=== PATIENT | male | born 1985 | race Caucasian/White ===

== ENCOUNTER 2022-09-29 14:59 | Emergency (ER) | payer OTHER, SELFPAY ==
[2022-09-29 14:59] VITALS: BP 129/83; PULSE 83; RESP 20; O2SAT 94
--- NOTE | 2022-09-29 15:08 | ED.WEAKNESS ---
HPI - Weakness General Chief complaint: Weakness Stated complaint: dehydration Time Seen by Provider: 09/29/22 15:07 Source: patient Mode of arrival: ambulatory Limitations: no limitations History of Present Illness HPI Narrative: -- severe headache which started this morning. No focal deficits. No fever. -- Nausea with multiple episodes of vomiting since this morning. No abdominal pain. No diarrhea. -- Generalized weakness The patient takes 40 units of Lantus at night 20 units with each meal. The patient has been compliant with his Lantus. Complaint: generalized weakness Onset (ago): hour(s) ( symptoms started 12 hours ago.) Duration: constant Location: generalized Migration: none Severity: moderate Exacerbating factors: none Associated symptoms: headaches and nausea/vomiting Related Data Allergies Allergy/AdvReac Type Severity Reaction Status Date / Time No Known Allergies Allergy Verified 09/29/22 15:52 Review of Systems Review of Systems: All systems reviewed & are unremarkable except as noted in HPI and below Constitutional: Constitutional: Reports as per HPI and Reports no additional constitutional complaints Eyes: Eyes: Reports as per HPI and Reports no additional eye complaints ENT: Reports system reviewed and no additional complaints, except as documented and Reports as per HPI Cardiovascular: Cardiovascular: Reports as per HPI and Reports no additional cardiovascular complaints Respiratory: Respiratory: Reports as per HPI and Reports no additional respiratory complaints Gastrointestinal: Gastrointestinal: Reports as per HPI, Reports no additional gastrointestinal complaints, Reports nausea and Reports vomiting Comments: Vomitus is bilious Genitourinary: Genitourinary: Reports no additional male genitourinary complaints and Reports as per HPI Musculoskeletal: Musculoskeletal: Reports no additional musculoskeletal complaints and Reports muscle cramps Integumentary/Breasts: Skin/Breast: Reports system reviewed and no additional complaints, except as docu and Reports as per HPI Neurologic: Reports system reviewed and no additional complaints, except as documented and Reports as per HPI Psychiatric: Psychiatric: Reports no additional psychiatric complaints and Reports as per HPI Endocrine: Endocrine: Reports no additional endocrine complaints and Reports as per HPI Hematologic/Lymphatic: Hematologic/Lymphatic: Reports no additional hematologic/lymphatic complaints and Reports as per HPI Allergic/Immunologic: Allergic/Immunologic: Reports no additional allergic/immunologic complaints and Reports as per HPI PMFSH Past Medical History Medical History (Updated 09/29/22 @ 19:54 by Chato Cano MD) Diabetes mellitus Exam Const: Nutritional Appearance: well nourished Orientation/consciousness: patient oriented x3 Limitations: no limitations HENMT: Head: normal to inspection Ears: external ears normal Face/Nose/Sinus: Normal external nose present Face and sinus: normal facial exam Mouth: Yes Normal oral and palatal mucosa present Throat: posterior oropharynx normal Eyes: Conjunctivae: conjunctivae normal Pupils: Equal, round and reactive pupils present EOM: EOMs intact bilaterally Direct Ophthalmoscopy: no photophobia Neck: Neck: normal visual inspection and no lymphadenopathy Chest: Chest palpation & inspection: normal inspection of the chest Resp: Effort & Inspection: normal respiratory effort Auscultation: clear to auscultation bilaterally Cardio: Rate: regular rate Rhythm: regular rhythm GI: GI Palp: Yes Soft to palpation Auscultation: normal bowel sounds : General: Yes no CVA tenderness Back/Spine/Pelvis: Back: no CVA tenderness Skin: General skin exam: normal color Rashes: no rashes Wounds: no wounds Neuro: General: patient oriented x3, moves all extremities, no meningeal signs, no focal motor deficits and CN's II-XI intact bilaterally Cranial n
[2022-09-29 15:27] LABS: Basophils Absolute Auto 0.03 K/mm3 (0.00-0.10); Basophils Percent Auto 0.6 % (0.0-1.0); Eosinophils Absolute Auto 0.03 K/mm3 (0.02-0.50); Eosinophils Percent Auto 0.6 % (1.0-6.0); Hematocrit 42.3 % (40.0-54.0); Hemoglobin 14.5 g/dL (14.0-18.0); Immature Granulocyte Absolute 0.01 K/mm3 (0.00-0.00); Immature Granulocyte Percent A 0.2 % (0.0-0.0); Lymphocytes Absolute Auto 1.27 K/mm3 (1.10-4.50); Lymphocytes Percent Auto 25.7 % (18.0-42.0); Mean Corpuscular HGB Conc 34.3 g/dL (32.0-36.0); Mean Corpuscular Hemoglobin 30.5 pg (27.0-31.0); Mean Corpuscular Volume 88.9 fL (78.0-102.0); Mean Platelet Volume 9.8 fl (8.7-11.0); Monocytes Absolute Auto 0.47 K/mm3 (0.10-0.90); Monocytes Percent Auto 9.5 % (2.0-11.0); Neutrophils Absolute Auto 3.1 K/mm3 (1.7-7.2); Neutrophils Percent Auto 63.4 % (50.0-70.0); Platelet Count Result 334 K/mm3 (150-420); Red Blood Count 4.76 M/mm3 (4.70-6.10); Red Cell Distribution Width 11.7 % (11.6-14.4)
[2022-09-29 15:45] LABS: Alanine Aminotransferase 45 U/L (16-63); Alkaline Phosphatase 70 U/L (46-116); Anion Gap 20 mmol/L (8-16); Aspartate Amino Transferase 21 U/L (15-37); Blood Urea Nitrogen 14 mg/dL (7-18); Carbon Dioxide 17 mmol/L (21-32); Chloride 95 mmol/L (98-108); Estimated Glomerular Filt Rate > 60; Glucose 293 mg/dL (70-99); Osmolality Calculated 285 mOsm/kg (285-295); Potassium 4.5 mmol/L (3.5-5.1); Sodium 132 mmol/L (136-145); Total Protein 7.7 g/dL (6.4-8.2)
[2022-09-29 15:47] LABS: Lactic Acid Reflex 1.1 mmol/L (0.4-2.0)
[2022-09-29 15:48] LABS: Troponin I < 4.0 ng/L (0.00-60.4)
[2022-09-29] MEDS: ONDANSETRON INJ 4 MG/2 ML VIAL IV PUSH (15:52)
[2022-09-29] MEDS: LACTATED RINGERS 1,000 ML 999 ML IV CONT (15:52)
[2022-09-29 16:00] LABS: Bilirubin,Total 1.3 mg/dL (0.00-1.00)
[2022-09-29] MEDS: SODIUM CHLORIDE 0.9% IV 1,000 ML 999 ML IV CONT (16:16)
[2022-09-29] MEDS: INSULIN HUMAN REGULAR (*BKC) 1,000 UNITS/10 ML VIAL 10 UNITS IV PUSH (16:16)
[2022-09-29 16:20] LABS: Lipase 18 U/L (16-77)
[2022-09-29 16:20] LABS: Acetone Small (Negative)
[2022-09-29] MEDS: KETOROLAC 30 MG/ML VIAL (*BKC) IV PUSH (16:26)
[2022-09-29 17:19] LABS: Glucose Point of Care 67 mg/dl (65-105)
[2022-09-29] MEDS: DEXTROSE 5%/LACTATED RINGERS 1,000 ML 200 ML IV CONT (17:36)
--- NOTE | 2022-09-29 17:38 | PC.NURSE ---
pt resting per cot. no improvement with achy headache, call gunn in reach.
[2022-09-29 17:39] VITALS: BP 116/60; PULSE 87; RESP 20; TEMP 36.4; O2SAT 97
[2022-09-29 17:51] LABS: Anion Gap 14 mmol/L (8-16); Blood Urea Nitrogen 13 mg/dL (7-18); Calcium 8.6 mg/dL (8.5-10.1); Carbon Dioxide 22 mmol/L (21-32); Chloride 105 mmol/L (98-108); Estimated Glomerular Filt Rate > 60; Osmolality Calculated 288 mOsm/kg (285-295); Potassium 3.6 mmol/L (3.5-5.1); Sodium 141 mmol/L (136-145)
[2022-09-29 17:52] LABS: Glucose 31 mg/dL (70-99)
[2022-09-29 18:39] LABS: Glucose Point of Care 174 mg/dl (65-105)
--- NOTE | 2022-09-29 18:58 | PC.NURSE ---
report to esha jamison
[2022-09-29 19:37] LABS: Glucose Point of Care 357 mg/dl (65-105)
[2022-09-29] MEDS: INSULIN HUMAN REGULAR (*BKC) 1,000 UNITS/10 ML VIAL 5 UNITS SUB-Q (20:01)
[2022-09-29 20:35] VITALS: BP 102/65; PULSE 71; RESP 16; TEMP 36.3; O2SAT 98
== END 2022-09-29 20:40 | disposition home or self-care (01) ==
PROVIDERS: Emergency Provider Internal Medicine Critical Care Medicine; PCP Physician Assistant
DX: E10.10 Type 1 diabetes mellitus with ketoacidosis without coma (principal)
CPT/HCPCS: 36415; 80048; 80053; 82010; 82948; 83605; 83690; 84484; 85025; 96361; 96374; 96375; 99284; J1815; J1885; J2405; J7030; J7120; J7121

== ENCOUNTER 2023-01-15 13:50 | Emergency (ER) | payer BC, OTHER, SELFPAY ==
--- NOTE | ~2023-01-15 | XR_ITS ---
EXAM: XR wrist LT min 3V DATE: 01/15/2023 14:16 HISTORY: wrist pain to ulnar side x 2 weeks NKI . COMPARISON: None available. FINDINGS: Normal mineralization. No fracture or dislocation. No lytic or blastic lesion. Joint space s are maintained. No erosion or periosteal change. Soft tissues within normal limits. IMPRESSION: No acute osseous finding in the left wrist. Reviewed, dictated and finalized at location [facility]
[2023-01-15 13:54] VITALS: BP 148/78; PULSE 84; RESP 18; TEMP 36.8; O2SAT 98
[2023-01-15] MEDS: KETOROLAC (*BKC) 60 MG/2 ML VIAL IM (14:09)
--- NOTE | 2023-01-15 14:32 | ED.EXTPRO ---
HPI - Extremity Problem General Chief complaint: Extremity Problem,Nontraumatic Stated complaint: wrist pain Time Seen by Provider: 01/15/23 14:04 Source: patient Mode of arrival: ambulatory Limitations: no limitations History of Present Illness HPI Narrative: this is a 37-year-old male with type 1 diabetes that presents with left wrist pain with no known injuries has tried [id number] medication with minimal relief rates his pain about a 7/10 it is swollen warm tender to touch has no numbness or tingling in his fingers and strong brisk radial pulse on the left. Complaint: extremity pain Onset (ago): day(s) Pain Consistency: constant Location: left Severity scale (1-10): 7 Quality: aching Radiation: distal Relieving factors: nothing Exacerbating factors: palpation Associated symptoms: denies other symptoms Related Data Allergies Allergy/AdvReac Type Severity Reaction Status Date / Time No Known Allergies Allergy Verified 09/29/22 15:52 Review of Systems Review of Systems: All systems reviewed & are unremarkable except as noted in HPI and below PMFSH Past Medical History Medical History Diabetes mellitus Exam Const: General: healthy appearing Nutritional Appearance: well nourished Resp: Effort & Inspection: normal respiratory effort Auscultation: clear to auscultation bilaterally Cardio: Rate: regular rate Rhythm: regular rhythm Skin: Other: Left wrist is mildly swollen tender with palpation and warm and erythematous. Neuro: General: moves all extremities Psych: Mental Status: mental status grossly normal Affect: normal affect Course Course Emergency Course: Patient received a IM dose of 60mg Toradol which pain has improved, and x-ray performed shows no acute fractures. Vital Signs Vital signs: Vital Signs Temperature 36.8 C 01/15/23 13:54 Pulse Rate 84 01/15/23 13:54 Respiratory Rate 18 01/15/23 13:54 Blood Pressure 148/78 H 01/15/23 13:54 Pulse Oximetry 98 01/15/23 13:54 Oxygen Delivery Room Air 01/15/23 13:54 Temperature 36.8 C 01/15/23 13:54 Pulse Rate 84 01/15/23 13:54 Respiratory Rate 18 01/15/23 13:54 Blood Pressure 148/78 H 01/15/23 13:54 Pulse Oximetry 98 01/15/23 13:54 Oxygen Delivery Room Air 01/15/23 13:54 Critical Care Time Critical Care Time Critical Care Time: No Discharge Plan Discharge Clinical Impression: Gout Qualifiers: Gout site: wrist Gout etiology: unspecified cause Chronicity: acute Laterality: left Qualified Code(s): M10.9 - Gout, unspecified Patient Disposition: Home, Self-Care Condition: Stable Instructions: Antibiotic Form, Gout (ED) Additional Instructions: take medicine as prescribed and follow up with primary within 1 week for further evaluation and treatment. Prescriptions: New indomethacin 50 mg capsule 50 mg PO TID 7 Days Qty: 21 0RF Rx Instructions: administer with food or milk Follow-up/Referrals: Heaven,YAYO Woo [Primary Care Provider] - Time of Disposition: 14:37
[2023-01-15 14:42] VITALS: BP 142/72; PULSE 81; RESP 18; TEMP 36.7; O2SAT 98
== END 2023-01-15 14:45 | disposition home or self-care (01) ==
PROVIDERS: Emergency Provider Emergency Medicine; PCP Physician Assistant
DX: M10.9 Gout, unspecified (principal); E11.9 Type 2 diabetes mellitus without complications
CPT/HCPCS: 73110; 96372; 99283; J1885

== ENCOUNTER 2023-05-17 20:36 | Emergency (ER) | payer BC, OTHER, SELFPAY ==
--- NOTE | ~2023-05-17 | CT_ITS ---
EXAMINATION: CT abdomen pelvis wo con DATE: 05/17/2023 21:06 INDICATION: Abdominal pain TECHNIQUE: Computed tomography (CT) of the abdomen and pelvis was performed without intravenous contr ast. The dose-length product was 597.55 mGy-cm. Automated exposure control and iterative reconstructi on technique were employed. COMPARISON: None. FINDINGS: Lung bases unremarkable. Heart size normal. No significant pleural or pericardial effusion. The liver, spleen, adrenal glands and kidneys are unremarkable. There are coarse calcifications like ly involving the pancreatic head, suspicious for chronic pancreatitis. Gallbladder is present. Nonobs tructive bowel gas pattern. No abnormal pelvic masses or fluid collections. There is focal induration of the subcutaneous tissues right anterior abdominal wall, possibly related to recent injection. Non obstructive bowel gas pattern. No significant vascular abnormality. No lymphadenopathy. Status post s perlita fusion at L5-S1. There is discectomy at this level 2. No focal lytic or blastic lesions. No acu te bone or joint abnormality. IMPRESSION: 1. No acute abdominal abnormality. 2: Coarse pancreatic head calcifications, likely related to chronic pancreatitis. Reviewed, dictated and finalized at location [facility]. IMPRESSION: 1. No acute abdominal abnormality. 2: Coarse pancreatic head calcifications, likely related to chronic pancreatiti s.
--- NOTE | ~2023-05-17 | CT_ITS ---
Clinical Indication: Pain CT Scan of the Chest with Contrast: Technique: Contiguous sections were acquired throughout the chest after intravenous administration of 100 cc of Omnipaque 350. Dose reduction technique was used on this scan by utilizing automated expos ure control and iterative reconstruction technique. The dose-length product (DLP) was 431.71 mGy-cm. Findings: There is no evidence of any significant mediastinal, hilar or axillary lymphadenopathy. There is no f illing defect in the pulmonary arterial tree to suggest pulmonary embolus. There is no evidence of ao rtic dissection or aneurysm. There is no evidence of pleural or pericardial effusion. The lungs are clear. No pulmonary nodules or infiltrates are noted. Images through the upper abdomen reveal no abnormalities. Impression: No evidence of pulmonary embolus, aortic dissection, or aortic aneurysm. Clear lungs. Reviewed, dictated and finalized at [facility]. Impression: No evidence of pulmonary embolus, aortic dissection, or aortic aneurysm. Clear lungs.
[2023-05-17 20:36] VITALS: BP 152/100; PULSE 70; RESP 20; TEMP 37.3; O2SAT 100
--- NOTE | 2023-05-17 20:37 | ED.ABDPAIN ---
HPI - Abdominal Pain General Chief Complaint: Abdominal Pain Stated Complaint: Abd Pain Time Seen by Provider: 05/17/23 20:37 Source: patient Mode of arrival: ambulatory Limitations: no limitations History of Present Illness HPI narrative: patient is a 37-year-old male who started not feeling good this evening. He is having acute nausea and vomiting on his chronic diarrhea. He is also having some lower chest pain which he feels in his back. He has a history of pancreatitis. MD elicited complaint: abdominal pain Pertinent past history: other ( Pancreatitis, chronic diarrhea, diabetes type 1) Onset (ago): day(s) (1) Pain Consistency: constant Location: diffuse, chest and epigastric Severity: moderate Pain scale (0-10): 6 Quality: cramping and sharp Radiation: none Migration to: no migration Exacerbating factors: nothing Relieving factors: nothing Associated symptoms: nausea, vomiting and diarrhea ( chronic; last bowel movement 2 days ago) Related Data Home Medications Medication Instructions Recorded Confirmed blood-glucose sensor (Dexcom G7 05/18/23 05/18/23 Sensor device) Allergies Allergy/AdvReac Type Severity Reaction Status Date / Time No Known Allergies Allergy Verified 05/18/23 01:24 Review of Systems Review of Systems: All systems reviewed & are unremarkable except as noted in HPI and below Constitutional: Constitutional: Reports no additional constitutional complaints Eyes: Eyes: Reports no additional eye complaints ENT: Reports system reviewed and no additional complaints, except as documented Cardiovascular: Cardiovascular: Reports no additional cardiovascular complaints Respiratory: Respiratory: Reports no additional respiratory complaints Gastrointestinal: Gastrointestinal: Reports no additional gastrointestinal complaints Genitourinary: Genitourinary: Reports no additional male genitourinary complaints Musculoskeletal: Musculoskeletal: Reports no additional musculoskeletal complaints Integumentary/Breasts: Skin/Breast: Reports system reviewed and no additional complaints, except as docu Neurologic: Reports system reviewed and no additional complaints, except as documented Psychiatric: Psychiatric: Reports no additional psychiatric complaints Endocrine: Endocrine: Reports no additional endocrine complaints Hematologic/Lymphatic: Hematologic/Lymphatic: Reports no additional hematologic/lymphatic complaints Allergic/Immunologic: Allergic/Immunologic: Reports no additional allergic/immunologic complaints PMFSH Past Medical History Medical History Diabetes mellitus Exam Const: General: healthy appearing Nutritional Appearance: well nourished Orientation/consciousness: patient oriented x3 HENMT: Head: normal to inspection Ears: external ears normal Face/Nose/Sinus: Normal external nose present Eyes: Conjunctivae: conjunctivae normal Pupils: Equal, round and reactive pupils present EOM: EOMs intact bilaterally Neck: Neck: normal visual inspection Chest: Chest palpation & inspection: normal inspection of the chest Resp: Effort & Inspection: normal respiratory effort and not labored Auscultation: clear to auscultation bilaterally Cardio: Rate: regular rate Rhythm: regular rhythm Heart sounds: no murmurs GI: Inspection: non-distended GI Palp: Yes Soft to palpation, Yes Tenderness to palpation present (GI) ( diffuse abdominal tenderness), Yes Guarding due to palpation present (GI), No Rigid due to palpation, No Hernia present, No Palpable mass present and No Rebound tenderness present Auscultation: bowels sounds not normal and Hyperactive bowel sounds present : General: Yes bladder normal to palpation Back/Spine/Pelvis: Back: no CVA tenderness Skin: General skin exam: normal color Rashes: no rashes Wounds: no wounds Neuro: General: patient oriented x3 Cranial nerves: Yes Nystagmus not present Speech:
--- NOTE | 2023-05-17 20:44 | ECG_ITS ---
Measurements Intervals [place] Rate: 69 P: * [place]: * QRS: 86 QRSD: 86 T: 52 QT: 373 Avg RR 869 QTc: 391 QTcB 400 QTcF 390 Interpretive Statements SUSPECT SINUS RHYTHM ABNORMAL RHYTHM ECG INTERPRETATION BASE ON A DEFAULT AGE OF 40 YEARS SEE SCANNED COPY FOR SIGNATURE MTDD
[2023-05-17 21:10] LABS: Glucose Point of Care 43 mg/dl (65-105)
[2023-05-17 21:14] LABS: Basophils Absolute Auto 0.03 K/mm3 (0.00-0.10); Basophils Percent Auto 0.4 % (0.0-1.0); Eosinophils Absolute Auto 0.08 K/mm3 (0.02-0.50); Eosinophils Percent Auto 1.1 % (1.0-6.0); Hematocrit 41.9 % (40.0-54.0); Hemoglobin 13.9 g/dL (14.0-18.0); Immature Granulocyte Absolute 0.02 K/mm3 (0.00-0.00); Immature Granulocyte Percent A 0.3 % (0.0-0.0); Lymphocytes Percent Auto 34.9 % (18.0-42.0); Mean Corpuscular HGB Conc 33.2 g/dL (32-36); Mean Corpuscular Hemoglobin 29.3 pg (27.0-31.0); Mean Corpuscular Volume 88.4 fL (78.0-102.0); Mean Platelet Volume 9.6 fl (8.7-11.0); Monocytes Absolute Auto 0.51 K/mm3 (0.10-0.90); Monocytes Percent Auto 7.1 % (2.0-11.0); Neutrophils Absolute Auto 4.02 K/mm3 (1.70-7.20); Neutrophils Percent Auto 56.2 % (50.0-70.0); Platelet Count Result 320 K/mm3 (150-420); Red Blood Count 4.74 M/mm3 (4.70-6.10); Red Cell Distribution Width 11.9 % (11.6-14.4); White Blood Count 7.2 K/mm3 (4.8-10.8)
[2023-05-17] MEDS: SODIUM CHLORIDE 0.9% IV 1,000 ML 999 ML IV CONT (21:15)
[2023-05-17] MEDS: DEXTROSE 50% 25 GM/50 ML SYRINGE IV PUSH (21:16)
[2023-05-17 21:31] LABS: INR 0.9; Prothrombin Time 9.5 Seconds (9.50-12.1)
[2023-05-17 21:35] LABS: Alanine Aminotransferase 43 U/L (16-63); Albumin Level 3.9 g/dL (3.4-5.0); Alkaline Phosphatase 47 U/L (46-116); Anion Gap 4 mmol/L (4-12); Aspartate Amino Transferase 25 U/L (15-37); Bilirubin,Total 0.6 mg/dL (0.00-1.00); Blood Urea Nitrogen 11 mg/dL (7-18); Calcium 9.2 mg/dL (8.5-10.1); Carbon Dioxide 35 mmol/L (21-32); Chloride 105 mmol/L (98-108); Estimated Glomerular Filt Rate > 60; Glucose 54 mg/dL (70-99); Lactic Acid Reflex 1.3 mmol/L (0.4-2.0); Lipase 25 U/L (16-77); Osmolality Calculated 295 mOsm/kg (285-295); Potassium 3.8 mmol/L (3.5-5.1); Sodium 144 mmol/L (136-145); Troponin I 6.2 ng/L (0.00-60.4)
[2023-05-17 21:36] LABS: Glucose Point of Care 120 mg/dl (65-105)
[2023-05-17 21:36] LABS: Acetone Small (Negative)
[2023-05-17] MEDS: KETOROLAC 30 MG/ML VIAL (*BKC) IV PUSH (21:48)
[2023-05-17] MEDS: ONDANSETRON INJ 4 MG/2 ML VIAL IV PUSH (21:48)
[2023-05-17] MEDS: PROMETHAZINE HCL 25 MG/ML AMPUL 12.5 MG IV PUSH (22:16)
[2023-05-17] MEDS: MORPHINE SULFATE (*CRX) 2 MG/ML INJ IV PUSH (22:16)
--- NOTE | 2023-05-17 22:22 | ECG_ITS ---
Measurements Intervals [employer] [place] Rate: 83 P: 52 AL: 168 QRS: 80 QRSD: 89 T: 29 QT: 292 Avg RR 722 QTc: 331 QTcB 343 QTcF 325 Interpretive Statements SINUS RHYTHM POSSIBLE RIGHT VENTRICULAR CONDUCTION DELAY [RST (QR) IN V1/V2] SEPTAL MYOCARDIAL INFARCT, OF INDETERMINATE AGE [40+ ms Q WAVE IN V1/V2] ABNORMAL ECG SEE SCANNED COPY FOR SIGNATURE MTDD
[2023-05-17 22:58] LABS: Appearance Urine Clear (Clear); Bilirubin Urine Negative (Negative); Blood Urine Negative (Negative); Color Urine Light Yellow (Yellow); Glucose Urine UA 3+ (Negative); Ketones Urine Negative (Negative); Leukocyte Esterase Ur Negative (Negative); Nitrate Urine Negative (Negative); Protein Urine Negative (Negative); Specific Grav Ur 1.015 (1.010-1.020); Urobilinogen Urine 0.2 mg/dL (0.2-1.0)
[2023-05-17 23:01] LABS: Add Urine Microscopic? YES; Bacteria Urine Trace /hpf; RBC Urine 0-2 /hpf (0-2); WBC Urine 0-3 /hpf (0-3)
[2023-05-17] MEDS: MAG HYDROX/ALUMINUM HYD/SIMETH 30 ML, PHENobarb/HYOSCY/ATROPINE/SCOP 32.4 MG, LIDOCAINE... PO (23:06)
[2023-05-17 23:11] LABS: Glucose Point of Care 54 mg/dl (65-105)
[2023-05-17 23:38] LABS: Glucose Point of Care 107 mg/dl (65-105)
[2023-05-17] MEDS: PANTOPRAZOLE SODIUM IV 40 MG VIAL IV PUSH (23:47)
[2023-05-17] MEDS: SUCRALFATE 1 GM TABLET PO (23:54)
[2023-05-18 00:01] LABS: D Dimer 0.21 mg/L (0.19-0.50); INR 0.9; Partial Thromboplastin Time 23.4 Sec (23.9-30.70); Prothrombin Time 10.2 Seconds (9.50-12.1)
[2023-05-18 00:02] VITALS: BP 113/66; PULSE 69; RESP 18
[2023-05-18 00:06] LABS: Troponin I 6.6 ng/L (0.00-60.4)
[2023-05-18 00:16] VITALS: PULSE 64; RESP 19
[2023-05-18 00:25] LABS: Glucose Point of Care 229 mg/dl (65-105)
[2023-05-18 00:30] VITALS: PULSE 63; RESP 18
== END 2023-05-18 02:47 | disposition home or self-care (01) ==
PROVIDERS: Emergency Provider Emergency Medicine; PCP Physician Assistant
DX: K52.9 Noninfective gastroenteritis and colitis, unspecified (principal); E10.649 Type 1 diabetes mellitus with hypoglycemia without coma; K20.90 Esophagitis, unspecified without bleeding; K86.1 Other chronic pancreatitis
CPT/HCPCS: 36415; 71275; 74176; 80053; 81001; 82010; 82948; 83605; 83690; 84484; 85025; 85380; 85610; 85730; 93005; 96361; 96374; 96375; 99284; A9270; C9113; J1885; J2270; J2405; J2550; J7030; Q9967

== ENCOUNTER 2023-05-20 05:51 | Emergency (ER) | payer BC, OTHER, SELFPAY ==
[2023-05-20] VITALS (35 sets, daily range): BP systolic 118–164; BP diastolic 64–88; PULSE 83–115; RESP 20–28; TEMP 36.6; O2SAT 98–100
--- NOTE | ~2023-05-20 | XR_ITS ---
EXAMINATION: XR chest 1V portable DATE: 05/20/2023 06:31 INDICATION: Epigastric abdominal pain. TECHNIQUE: A single frontal view of the chest was obtained. COMPARISON: Chest CT 05/18/2023 FINDINGS: There is no pneumonia, pleural effusion, or pneumothorax. The heart size is normal. IMPRESSION: 1. No acute cardiopulmonary disease. Reviewed, dictated and finalized at location A.
--- NOTE | ~2023-05-20 | CT_ITS ---
EXAMINATION: CT abdomen pelvis w con DATE: 05/20/2023 07:51 INDICATION: Epigastric abdominal pain. TECHNIQUE: Computed tomography (CT) of the abdomen and pelvis was performed with 100 mL Omnipaque 350 intravenous contrast. Automated exposure control and iterative reconstruction technique were employe d. The dose-length product was 361.77 mGy-cm. COMPARISON: CT abdomen and pelvis 05/17/2023 FINDINGS: The visualized portions of the lung bases are clear without pneumonia or pleural effusion. The heart size is normal. No pericardial effusion. There is wall thickening of the distal esophagus. The liver, gallbladder, and spleen are normal. There are calcifications in the pancreas, consistent w ith chronic pancreatitis. The adrenal glands and kidneys are normal. There are no dilated loops of justine wel. There are changes of appendectomy. There are no pathologically enlarged lymph nodes. There is no free intraperitoneal fluid. There are changes of anterior and posterior fusion procedures at L5-S1. There is mild chronic anterior wedging of T11-L1 vertebral bodies. IMPRESSION: 1. Wall thickening of the distal esophagus, consistent with esophagitis. Reviewed, dictated and finalized at location A.
[2023-05-20 05:56] LABS: Glucose Point of Care > 450 mg/dl (65-105)
--- NOTE | 2023-05-20 05:56 | ECG_ITS ---
SEE SCANNED COPY FOR CONFIRMED REPORT MTDD
[2023-05-20 06:17] LABS: Hemoglobin 16.5 g/dL (14.0-18.0); Mean Corpuscular HGB Conc 31.1 g/dL (32-36); Mean Corpuscular Hemoglobin 29.6 pg (27.0-31.0); Mean Platelet Volume 10.3 fl (8.7-11.0); Platelet Count Result 391 K/mm3 (150-420); Red Blood Count 5.58 M/mm3 (4.70-6.10); Red Cell Distribution Width 11.8 % (11.6-14.4); White Blood Count 17.2 K/mm3 (4.8-10.8)
--- NOTE | 2023-05-20 06:18 | ED.NAVMDI ---
HPI - Nausea/Vomiting/Diarrhea General Chief complaint: Nausea/Vomiting/Diarrhea <Julio Weathers MD - Last Filed: 05/20/23 08:19> Stated complaint: Vomiting <Julio Weathers MD - Last Filed: 05/20/23 08:19> Time Seen by Provider: 05/20/23 07:31 <Julio Weathers MD - Last Filed: 05/20/23 08:19> Source: patient and family <Julio Weathers MD - Last Filed: 05/20/23 08:19> Mode of arrival: ambulatory <Julio Weathers MD - Last Filed: 05/20/23 08:19> Limitations: no limitations <Julio Weathers MD - Last Filed: 05/20/23 08:19> History of Present Illness HPI Narrative: this is a 37-year-old male that presents some nausea vomiting abdominal pain has been complaining of chest pain symptoms have been ongoing for the last couple weeks was seen in the ER approximately 2 days ago and was treated at that time. Patient's symptoms had persistent since that discharge, currently there is some chest pain and severe abdominal pain with no flank pain no dysuria does have nausea with episodes of vomiting. Currently no diarrhea or constipation no cough or congestion. Patient is a diabetic and is on insulin and has a glucose monitor that has been functioning and has not been checking his blood sugars. <Julio Weathers MD - Last Filed: 05/20/23 08:19> MD elicited complaint: nausea, vomiting and abdominal pain <Julio Weathers MD - Last Filed: 05/20/23 08:19> Onset (ago): week(s) <Julio Weathers MD - Last Filed: 05/20/23 08:19> Description of vomiting: watery <Julio Weathers MD - Last Filed: 05/20/23 08:19> Associated nausea: Yes <Julio Weathers MD - Last Filed: 05/20/23 08:19> Associated abdominal pain: Yes <MD Marie Roe Last Filed: 05/20/23 08:19> Location of pain: diffuse <MD Marie Roe Last Filed: 05/20/23 08:19> Radiation: diffuse <MD Marie Roe Last Filed: 05/20/23 08:19> Severity: severe <Julio Weathers MD - Last Filed: 05/20/23 08:19> Quality: aching <Julio Weathers MD - Last Filed: 05/20/23 08:19> Exacerbating factors: none <Julio Weathers MD - Last Filed: 05/20/23 08:19> Relieving factors: none <Julio Weathers MD - Last Filed: 05/20/23 08:19> Related Data Home medications: Home Medications Medication Instructions Recorded Confirmed blood-glucose sensor (Dexcom G7 05/18/23 05/20/23 Sensor device) <Julio Weathers MD - Last Filed: 05/20/23 08:19> Allergies/Adverse reactions: Allergies Allergy/AdvReac Type Severity Reaction Status Date / Time No Known Allergies Allergy Verified 05/18/23 01:24 <Julio Weathers MD - Last Filed: 05/20/23 08:19> Review of Systems Review of Systems: All systems reviewed & are unremarkable except as noted in HPI and below <Julio Weathers MD - Last Filed: 05/20/23 08:19> PMF Past Medical History Medical History: Medical History Diabetes mellitus <Julio Weathers MD - Last Filed: 05/20/23 08:19> Exam Const: General: no acute distress and ill appearing <Julio Weathers MD - Last Filed: 05/20/23 08:19> Nutritional Appearance: thin <Julio Weathers MD - Last Filed: 05/20/23 08:19> Orientation/consciousness: patient oriented x3 <Julio Weathers MD - Last Filed: 05/20/23 08:19> Limitations: no limitations <Julio Weathers MD - Last Filed: 05/20/23 08:19> Eyes: Conjunctivae: conjunctivae normal <Julio Weathers MD - Last Filed: 05/20/23 08:19> Neck: Neck: normal visual inspection, no lymphadenopathy and no meningeal signs <Julio Weathers MD - Last Filed: 05/20/23 08:19> Chest: Chest palpation & inspection: normal inspection of the chest <Julio Weathers MD - Last Filed: 05/20/23 08:19> Resp: Effort & Inspection: normal respiratory effort <Julio Weathers MD - Last Filed:
[2023-05-20] MEDS: MORPHINE SULFATE (*CRX) 4 MG/ML INJ IV PUSH (06:22)
[2023-05-20] MEDS: ONDANSETRON INJ 4 MG/2 ML VIAL IV PUSH (06:22)
[2023-05-20] MEDS: PANTOPRAZOLE SODIUM IV 40 MG VIAL IV PUSH (06:24)
[2023-05-20] MEDS: SODIUM CHLORIDE 0.9% IV 1,000 ML 999 ML IV CONT ×3 (06:25→09:12)
[2023-05-20 06:26] LABS: Basophils Absolute Auto 0.03 K/mm3 (0.00-0.10); Basophils Percent Auto 0.2 % (0.0-1.0); Immature Granulocyte Absolute 0.07 K/mm3 (0.00-0.00); Immature Granulocyte Percent A 0.4 % (0.0-0.0); Lymphocytes Absolute Auto 0.89 K/mm3 (1.10-4.50); Lymphocytes Percent Auto 5.1 % (18.0-42.0); Monocytes Absolute Auto 0.52 K/mm3 (0.10-0.90); Neutrophils Percent Auto 91.3 % (50.0-70.0)
[2023-05-20 06:39] LABS: Alanine Aminotransferase 41 U/L (16-63); Albumin Level 4.6 g/dL (3.4-5.0); Alkaline Phosphatase 66 U/L (46-116); Aspartate Amino Transferase 14 U/L (15-37); Bilirubin,Total 1.3 mg/dL (0.00-1.00); Blood Urea Nitrogen 38 mg/dL (7-18); Calcium 9.1 mg/dL (8.5-10.1); Estimated CRCL calculation 58 ml/min; Estimated Glomerular Filt Rate 45; Total Protein 8.7 g/dL (6.4-8.2)
[2023-05-20 06:54] LABS: Base Excess ABG -24.2 mmol/L (0-2); Carboxyhemoglobin 0.1 % (0-1.5); Methemoglobin ABG 0.6 % (0-1.5); Oxygen Content ABG 20.4 %vol (16.0-22.0); Oxygen Saturation ABG 97.6 % (95-97); Oxyhemoglobin 96.9 % (94-100); PO2 ABG 133.3 mmHg (80-90); Reduced Hemoglobin 2.4 % (0-1.5); Total Hemoglobin 14.8 g/dL (12.0-18.0); pH ABG 7.06 (7.35-7.45)
[2023-05-20 06:55] LABS: Glucose 481 mg/dL (70-99)
[2023-05-20 06:58] LABS: Device ROOM AIR; Modified Allen's Test Pass; Site Drawn LEFT RADIAL
[2023-05-20 07:04] LABS: PCO2 ABG 14.2 mmHg (35-45)
--- NOTE | 2023-05-20 07:04 | PC.NURSE ---
Pt resting, continuing to monitor, IVF infusing as per order. Report given to MELISA Fritz
[2023-05-20 07:06] LABS: Carbon Dioxide < 5 mmol/L (21-32); Chloride 95 mmol/L (98-108); Osmolality Calculated 304 mOsm/kg (285-295); Sodium 132 mmol/L (136-145)
[2023-05-20 07:13] LABS: INR 0.9; Partial Thromboplastin Time 25.2 Sec (23.9-30.70); Prothrombin Time 9.8 Seconds (9.50-12.1)
[2023-05-20] MEDS: INSULIN HUMAN REGULAR (*BKC) 1,000 UNITS/10 ML VIAL 10 UNITS IV PUSH (07:14)
[2023-05-20 07:15] LABS: Lactic Acid Reflex 3.2 mmol/L (0.4-2.0)
[2023-05-20 07:15] LABS: Lipase 69 U/L (16-77); Troponin I 5.5 ng/L (0.00-60.4)
[2023-05-20 07:17] LABS: Magnesium 2.6 mg/dL (1.8-2.4); Phosphorus 6.2 mg/dL (2.6-4.7)
[2023-05-20] MEDS: SODIUM BICARBONATE 8.4% 50 MEQ/50 ML SYRINGE 77 MEQ IV PUSH (07:18)
[2023-05-20] MEDS: INSULIN REG 100 UNITS/100 ML 100 UNITS/100 ML BAG 7.65 UNITS IV CONT (07:51)
[2023-05-20 07:55] LABS: Glucose Point of Care 439 mg/dl (65-105)
[2023-05-20 08:16] LABS: SARS-CoV-2 RNA PCR Negative (Negative)
[2023-05-20 08:17] LABS: Influenza A QL RT-PCR Negative (Negative); Influenza B QL RT-PCR Negative (Negative); RSV RNA, RT-PCR Negative (Negative)
[2023-05-20 09:04] LABS: Glucose Point of Care 362 mg/dl (65-105)
[2023-05-20 09:50] LABS: Appearance Urine Clear (Clear); Bilirubin Urine Negative (Negative); Blood Urine 1+ (Negative); Color Urine Light Yellow (Yellow); Glucose Urine UA 3+ (Negative); Ketones Urine 3+ (Negative); Leukocyte Esterase Ur Negative LEU/UL (Negative); Nitrate Urine Negative (Negative); Protein Urine Trace (Negative); Specific Grav Ur >= 1.030 (1.010-1.020); Urobilinogen Urine 0.2 mg/dL (0.2-1.0); pH Urine 5.5 (5.0-8.0)
[2023-05-20 09:57] LABS: Add Urine Microscopic? YES; Bacteria Urine 1+ /hpf; RBC Urine 0-2 /hpf (0-2); Squamous Epithelial Cell Urine None seen /hpf (Few); WBC Urine 0-3 /hpf (0-3)
[2023-05-20 10:04] LABS: Hemoglobin A1C 11.3 % (<5.7)
[2023-05-20 10:16] LABS: Reflex Lactic Acid Yes or No Add Lactic
[2023-05-20 10:51] LABS: Lactic Acid 1.5 mmol/L (0.4-2.0)
[2023-05-20 10:53] LABS: Glucose Point of Care 209 mg/dl (65-105)
[2023-05-20 11:03] LABS: Anion Gap 23 mmol/L (4-12); Blood Urea Nitrogen 33 mg/dL (7-18); Calcium 7.6 mg/dL (8.5-10.1); Carbon Dioxide 11 mmol/L (21-32); Chloride 103 mmol/L (98-108); Estimated CRCL calculation 72 ml/min; Estimated Glomerular Filt Rate 58; Glucose 240 mg/dL (70-99); Osmolality Calculated 299 mOsm/kg (285-295); Potassium 4.5 mmol/L (3.5-5.1); Sodium 137 mmol/L (136-145)
[2023-05-20 11:12] LABS: Base Excess ABG -14.8 mmol/L (0-2); Device ROOM AIR; HCO3 ABG 10.5 mmol/L (23-29); Modified Allen's Test Pass; Oxygen Content ABG 18.4 %vol (16.0-22.0); Oxygen Saturation ABG 97.1 % (95-97); Oxyhemoglobin 96.5 % (94-100); PCO2 ABG 24.5 mmHg (35-45); PO2 ABG 98.6 mmHg (80-90); Site Drawn LEFT RADIAL; Total Hemoglobin 13.5 g/dL (12.0-18.0); pH ABG 7.25 (7.35-7.45)
--- NOTE | 2023-05-20 11:43 | PC.NURSE ---
[address] Vidal stop insulin gtt
[2023-05-20] MEDS: INSULIN HUMAN REGULAR (*BKC) 1,000 UNITS/10 ML VIAL 7 UNITS SUB-Q (12:09)
--- NOTE | 2023-05-20 12:11 | PC.NURSE ---
0882 Dr KINGSLEY WAS GOING TO RESTART INSULIN WRITE BEFORE TRANSFERRING PT [facility] STANDING HERE AND STATED THEY CAN NOT TAKE INSULIN GTT DR KINGSLEY CHANGED INSULIN TO 7 UNITS SUBQ PT TAKEN DIRECTLY TO ICU 5 AT [place] INSULIN GTT ORDER PLACED ON HOLD
[2023-05-20 12:56] LABS: Glucose Point of Care 228 mg/dl (65-105)
[2023-05-25 07:45] LABS: Beta-Hydroxybutyrate/Acetoacetate 11.82 mmol/L (0.02-0.27)
--- NOTE | 2023-05-26 12:13 | PC.NURSE ---
05/26/23 FINAL BLOOD CULTURE : NO GROWTH AFTER 5 DAYS
== END 2023-05-20 12:15 | disposition short-term general hospital (02) ==
PROVIDERS: Emergency Medicine; Emergency Provider Emergency Medicine; PCP Physician Assistant
DX: E11.10 Type 2 diabetes mellitus with ketoacidosis without coma (principal); Z79.4 Long term (current) use of insulin; K20.90 Esophagitis, unspecified without bleeding; N17.9 Acute kidney failure, unspecified
CPT/HCPCS: 36415; 36600; 71045; 74177; 80048; 80053; 81001; 82010; 82375; 82805; 82948; 83036; 83050; 83605; 83690; 83735; 84100; 84484; 85025; 85027; 85610; 85730; 87040; 87637; 93005; 96361; 96365; 96366; 96375; 96376; 99285; C9113; J1815; J2270; J2405; J7030; Q9967

== ENCOUNTER 2023-05-20 15:42 | Inpatient (IN) | payer BC, OTHER, SELFPAY ==
--- NOTE | ~2023-05-20 | US_ITS ---
EXAMINATION: US abdomen limited DATE: 05/21/2023 08:43 INDICATION: Abdominal tenderness TECHNIQUE: Multiple grayscale and Doppler ultrasound images of the abdomen were obtained. COMPARISON: CT abdomen and pelvis dated 05/20/2023 FINDINGS: The visualized body of the pancreas is normal in appearance. The pancreatic head and tail are not vi sualized. The visualized abdominal aorta is normal measuring 2.4 similar in caliber more proximally a nd 2.2 cm in the mid aorta. The visualized proximal inferior vena cava is normal. Liver has normal ec hogenicity and contour, with a smooth surface. No liver lesion identified. No intrahepatic biliary du ct dilation suspected. Portal venous flow was seen in the hepatopetal, normal direction and has george l Doppler waveform. The gallbladder is normal in appearance. There is no cholelithiasis. The common bile duct measures 4 mm, which is normal. Sonographic Glynn sign was reported as negative by the son ographer.Visualized portion of the right kidney demonstrates normal contour and echogenicity with no hydronephrosis. IMPRESSION: 1. Normal right upper quadrant ultrasound. Reviewed, dictated and finalized at location A.
--- NOTE | ~2023-05-20 | XR_ITS ---
EXAMINATION: XR thoracic spine 3V DATE: 05/21/2023 17:00 INDICATION: Thoracic back pain. TECHNIQUE: 3 views of thoracic spine on 4 radiographs were obtained. COMPARISON: None. FINDINGS: There is 5 degrees levocurvature of thoracic spine. Vertebral body heights and intervertebr al disc heights are normal. There are endplate osteophytes at multiple levels. There is multilevel mi ld facet joint osteoarthritis. IMPRESSION: 1. Mild thoracic spondylosis. Reviewed, dictated and finalized at location E.
[2023-05-20 13:15] VITALS: BMI 22.6
--- NOTE | 2023-05-20 13:31 | WPDCNINT ---
Assessment and Plan Assessment and plan (1) DKA (diabetic ketoacidosis): Code(s): E11.10 - Type 2 diabetes mellitus with ketoacidosis without coma Status: Acute Assessment and Plan: IVF bolus given in the ER and IV fluid infusion will be continued Insulin infusion will be started and Q1H glucose monitoring Serial labs will be performed Replace electrolytes as needed Will transition to SC insulin once AG is closed Consult dietitian and critical care educator NPO (2) Esophagitis: Code(s): K20.90 - Esophagitis, unspecified without bleeding Status: Acute Assessment and Plan: PPI q.12 hours (3) ORTIZ (acute kidney injury): Code(s): N17.9 - Acute kidney failure, unspecified Status: Acute Assessment and Plan: Presented with creatinine 1.7 which is already improved to 1.37. Likely prerenal and secondary to dehydration and hypovolemia Continue IV fluids monitor urine output electrolytes and creatinine Check CK level (4) Abdominal pain: Code(s): R10.9 - Unspecified abdominal pain Status: Acute Assessment and Plan: Likely secondary to DKA and chronic pancreatitis Lipase normal CT abdomen unremarkable Continue pain control Plan DVT prophylaxis -SCDs Stress ulcer prophylaxis -PPI Nutrition -npo Code Status - Full Code Total Critical Care Time - 30 minutes Due to a high probability of clinically significant, life threatening deterioration, the patient required my highest level of preparedness to intervene emergently and I personally spent this critical care time directly and personally managing the patient. This critical care time included obtaining a history; examining the patient; pulse oximetry; ordering and review of studies; arranging urgent treatment with development of a management plan; evaluation of patient's response to treatment; frequent reassessment; and discussions with other providers. It was exclusive of separately billable procedures and treating other patients and teaching time. Please see Assessment and Plan section and the rest of the note for further information on patient assessment and treatment E Business Consultant Consult Note Consult date: 05/20/23 Reason for consult: DKA HPI: Jorge Luis Monzon is a 37 year old male with past medical history of diabetes and pancreatitis presented to [place] ER with nausea vomiting and abdominal pain. Patient was seen in the ER with abdominal pain on 05/16. CT abdomen showed coarse pancreatic head calcifications secondary to chronic pancreatitis. Chest CTA was negative for PE. He states that his symptoms never recovered. He has not taken any insulin for last 3 days. He states his Dexcom monitor was malfunctioning. Patient complains of pain in his abdomen, diffuse in location, 6/10 severe, radiates to back and as stated with nausea vomiting. Patient denies any vomiting any blood. He states he has chronic diarrhea but no blood associated with it. No dysuria hematuria hematochezia melena. No chest pain shortness a breath cough fever chills or rigors. No headache dizziness lightheadedness. All the systems were reviewed and were negative. Workup in the ER today showed CT abdomen with wall thickening of distal esophagus suggestive of esophagitis. Elevated WBC 7.2. ABG showed metabolic acidosis. Workup in the ER showed elevated blood sugar elevated creatinine elevated beta hydroxybutyrate and metabolic acidosis. Patient was diagnosed with DKA and was given IV fluids and started on IV insulin. We were called regarding transfer [facility] for further evaluation management of DKA. Patient states he feels little better now but still has abdominal pain which she rates at 6/10 Review of Systems Review of Systems: All systems reviewed & are unremarkable except as noted in HPI and below (HPI) [facility] Past Medical History Medical History Diabetes mellitus Me
[2023-05-20] MEDS: KCL 20 MEQ/D5/0.45% SOD CHL 1,000 ML 150 ML IV CONT ×2 (13:35→20:07)
[2023-05-20] MEDS: INSULIN HUMAN REGULAR (*BKC) 100 UNITS in SODIUM CHLORIDE 0.9% IV 99 ML 7.5 UNITS IV CONT (13:36)
--- NOTE | 2023-05-20 13:37 | PM.IMHP ---
H&P: HPI History of Present Illness Date/Time: 05/20/23 13:37 Chief Complaint: Abdominal Pain, N/V Narrative: 37 y/o M presented with abdominal pain, nausea, vomiting with PMH of type 1 diabetes, DKA (x2-3 prior episodes), IBS (chronic diarrhea), and chronic pancreatitis. SH of lumbar fusion, shoulder R (ligament repair) and appendectomy. Patient presented to [facility] for further evaluation of severe abdominal pain, nausea, vomiting. Patient reports he has had nausea, vomiting, and lower chest pain that has been ongoing for the past 1-2 weeks. Patient was seen on 05/16 for similar symptoms. Ultimately discharged and diagnosed with gastroenteritis. Cardiac workup was negative. CT a showed esophageal thickening. Started on a PPI and urged to get an outpatient upper endoscopy. Returned today for re-evaluation due to increasing volume of emesis/nausea. Emesis has been bilious but non-bloody. Last able to tolerate PO approximately 3 days ago. Patient is a type 1 DM, has a dexcom but it , and takes Humalog 15u TIWM and Lantus 30u HS. Patient has not taken his insulin since Monday 05/15 due to feeling unwell/ illness . Patient unsure what he was told previously when he was first diagnosed with pancreatitis in regard to etiology. Currently reporting abdominal pain radiates into his midback, described stabbing, constant but varies in intensity. Drinking fluids worsens the pain, otherwise no other alleviating or aggravating factors. 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 Workup at [facility] revealed patient to be in DKA, last episode of DKA was a few years ago and has had 2-3 previous episodes. Initial VS at presentation: 97.8? F, HR 99, RR 20, 02/13/2044, and 100% on RA. ED workup showed: WBC 17.2, no anemia, sodium 132, K 6.0, chloride 95, creatinine 1.72 with GFR 45, glucose 481, A1c 11.3, calculated osmolality 3 4, lactic acid 3.2, of phosphorus 6.2, magnesium 2.6, total bili 1.3, AST 14. Viral PCR negative. CT showed esophagitis and chronic pancreatitis. Review of Systems Review of Systems: All systems reviewed & are unremarkable except as noted in HPI and below PMFSH Past Medical History Medical History Chronic pancreatitis Diabetes mellitus Type 1 Surgical History Surgical History History of appendectomy History of lumbar spinal fusion L5-S1 Social History Social History Smoking status: Never smoker Alcohol intake: unknown Substance use: never Substance use type: does not use Do You Feel Safe in your Home?: Yes Lack of Transportation: No Lack of Food: Never True Current Housing: Decline to Answer Concerned About Future Housing: Decline to Answer Difficulty Paying Gas/Electric Bills: Decline to Answer Difficulty Paying for Meds: Decline to Answer Currently Unemployed: Decline to Answer Education: Decline to Answer Difficulty w/ Childcare or Family Care: Decline to Answer Spiritual care concerns: No Meds Home Medications and Allergies Home Medications Medication Instructions Recorded Confirmed Type insulin aspart U-100 100 unit/mL 10 unit subcut TIDWMEAL 05/20/23 05/20/23 History subcutaneous solution (Novolog U-100 Insulin aspart) insulin glargine 100 unit/mL 30 unit subcut DAILY 05/20/23 05/20/23 History subcutaneous solution (Lantus U-100 Insulin) Allergies Allergy/AdvReac Type Severity Reaction Status Date / Time No Known Allergies Allergy Verified 05/18/23 01:24 Exam Const: General: no acute distress and uncomfortable Other: , male, ill-appearing HENMT: Face/Nose/Sinus: Normal nares present Mouth: Yes dry mucous membranes Eyes: General: appearance normal, both eyes and all relat
[2023-05-20 14:00] VITALS: BP 138/73; PULSE 80; PULSE 84; RESP 22; TEMP 37; O2SAT 100
[2023-05-20 14:15] LABS: Glucose Point of Care 209 mg/dl (65-105)
[2023-05-20 14:35] LABS: Anion Gap 16 mmol/L (4-12); Blood Urea Nitrogen 26 mg/dL (9-20); Calcium 8.1 mg/dL (8.4-10.2); Carbon Dioxide 9 mmol/L (22-30); Chloride 108 mmol/L (98-107); Estimated CRCL calculation 98 ml/min; Estimated Glomerular Filt Rate > 60; Glucose 240 mg/dL (65-110); Potassium 4.3 mmol/L (3.4-5.0); Sodium 133 mmol/L (137-145)
[2023-05-20 14:41] VITALS: BMI 22.6
[2023-05-20 15:00] VITALS: BMI 22.6
[2023-05-20 15:06] LABS: Glucose Point of Care 195 mg/dl (65-105)
[2023-05-20 15:10] LABS: Creatine Kinase 79 U/L (55-170)
--- NOTE | 2023-05-20 15:27 | PC.NURSE ---
1250- This patient, Jorge Luis Monzon, was admitted to Intensive Care Unit-5. Patient/family oriented to hospital policies and general routines including ID bracelet, bed and alarms, visiting hours, pain management, procedures, bathroom and other care routines, personal items, smoking policy, room service/diet, and visiting hours. Information on how to activate the Rapid Response Team has been discussed. Patient/Family are encouraged to report perceived risks to care and to ask questions if they do not understand what they are told or what they should do.
[2023-05-20 16:00] VITALS: BP 122/70; PULSE 82; RESP 22; TEMP 37.2; O2SAT 98
[2023-05-20 16:05] LABS: Glucose Point of Care 207 mg/dl (65-105)
[2023-05-20] MEDS: ONDANSETRON INJ 4 MG/2 ML VIAL IV PUSH ×2 (17:10→22:14)
[2023-05-20 17:11] LABS: Glucose Point of Care 191 mg/dl (65-105)
[2023-05-20] MEDS: MORPHINE SULFATE (*CRX) 2 MG/ML INJ IV PUSH (17:18)
[2023-05-20 18:00] VITALS: BP 120/66; PULSE 78; PULSE 82; RESP 22; O2SAT 98
[2023-05-20 18:04] LABS: Glucose Point of Care 184 mg/dl (65-105)
[2023-05-20 19:02] LABS: Anion Gap 10 mmol/L (4-12); Blood Urea Nitrogen 25 mg/dL (9-20); Calcium 8.2 mg/dL (8.4-10.2); Carbon Dioxide 14 mmol/L (22-30); Chloride 109 mmol/L (98-107); Estimated CRCL calculation 109 ml/min; Estimated Glomerular Filt Rate > 60; Glucose 221 mg/dL (65-110); Potassium 4.3 mmol/L (3.4-5.0); Sodium 133 mmol/L (137-145)
[2023-05-20 19:03] LABS: Glucose Point of Care 189 mg/dl (65-105)
[2023-05-20 20:00] VITALS: PULSE 76
[2023-05-20 20:06] LABS: Glucose Point of Care 221 mg/dl (65-105)
[2023-05-20] MEDS: PANTOPRAZOLE 40 MG TABLET PO (20:07)
[2023-05-20 20:15] VITALS: BP 132/73; PULSE 71; RESP 17; TEMP 37.2; O2SAT 99
[2023-05-20 22:00] VITALS: BP 149/83; PULSE 63; PULSE 75; RESP 17; O2SAT 99
[2023-05-20 22:12] LABS: Anion Gap 7 mmol/L (4-12); Blood Urea Nitrogen 21 mg/dL (9-20); Calcium 8.2 mg/dL (8.4-10.2); Carbon Dioxide 17 mmol/L (22-30); Chloride 108 mmol/L (98-107); Estimated CRCL calculation 137 ml/min; Estimated Glomerular Filt Rate > 60; Glucose 256 mg/dL (65-110); Potassium 4.3 mmol/L (3.4-5.0); Sodium 132 mmol/L (137-145)
[2023-05-20 22:22] LABS: Glucose Point of Care 243 mg/dl (65-105)
[2023-05-20 22:23] LABS: Glucose Point of Care 245 mg/dl (65-105)
[2023-05-20 23:39] LABS: Glucose Point of Care 264 mg/dl (65-105)
[2023-05-21] VITALS (14 sets, daily range): BP systolic 107–134; BP diastolic 56–86; PULSE 62–86; RESP 13–22; TEMP 36.8–37.1; O2SAT 94–100
[2023-05-21 00:20] LABS: Glucose Point of Care 250 mg/dl (65-105)
[2023-05-21 01:41] LABS: Glucose Point of Care 258 mg/dl (65-105)
[2023-05-21 02:30] LABS: Alanine Aminotransferase 22 U/L (6-50); Albumin Level 3.5 g/dL (3.5-5.1); Alkaline Phosphatase 40 U/L (38-126); Anion Gap 5 mmol/L (4-12); Aspartate Amino Transferase 16 U/L (17-59); Bilirubin,Total 1.5 mg/dL (0.2-1.3); Blood Urea Nitrogen 20 mg/dL (9-20); Calcium 8.3 mg/dL (8.4-10.2); Carbon Dioxide 19 mmol/L (22-30); Chloride 111 mmol/L (98-107); Estimated CRCL calculation 121 ml/min; Estimated Glomerular Filt Rate > 60; Glucose 283 mg/dL (65-110); Magnesium 2.5 mg/dL (1.6-2.3); Phosphorus 1.7 mg/dL (2.5-4.5); Potassium 4.1 mmol/L (3.4-5.0); Sodium 135 mmol/L (137-145)
[2023-05-21 02:51] LABS: Glucose Point of Care 225 mg/dl (65-105)
[2023-05-21] MEDS: KCL 20 MEQ/D5/0.45% SOD CHL 1,000 ML 150 ML IV CONT (02:51)
[2023-05-21] MEDS: ONDANSETRON INJ 4 MG/2 ML VIAL IV PUSH ×2 (03:04→09:02)
[2023-05-21] MEDS: HYDROcodone/acetaminophen (*CRX) 5-325 MG TABLET 1 TAB PO ×3 (03:36→20:44)
[2023-05-21 04:12] LABS: Glucose Point of Care 220 mg/dl (65-105)
[2023-05-21 05:51] LABS: Glucose Point of Care 208 mg/dl (65-105)
[2023-05-21 06:28] LABS: Glucose Point of Care 214 mg/dl (65-105)
[2023-05-21 06:41] LABS: Hematocrit 35.1 % (42.0-52.0); Hemoglobin 11.7 g/dL (14.0-18.0); Mean Corpuscular HGB Conc 33.3 g/dl (32-36); Mean Platelet Volume 9.9 fl (7.4-10.4); Platelet Count Result 257 k/mm3 (150-375); Red Cell Distribution Width 12.3 % (11.5-14.5); White Blood Count 8.2 K/mm3 (4.5-10.0)
[2023-05-21 06:55] LABS: Anion Gap 6 mmol/L (4-12); Blood Urea Nitrogen 19 mg/dL (9-20); Calcium 8.3 mg/dL (8.4-10.2); Carbon Dioxide 18 mmol/L (22-30); Chloride 111 mmol/L (98-107); Estimated CRCL calculation 122 ml/min; Estimated Glomerular Filt Rate > 60; Glucose 234 mg/dL (65-110); Potassium 3.7 mmol/L (3.4-5.0); Sodium 135 mmol/L (137-145)
[2023-05-21 07:43] LABS: Glucose Point of Care 221 mg/dl (65-105)
[2023-05-21] MEDS: INSULIN GLARGINE (*BKC) 100 UNITS/ML 30 UNITS SUB-Q (08:06)
--- NOTE | 2023-05-21 08:16 | WPDINTPN ---
Progress Note: A&P Assessment and Plan (1) DKA (diabetic ketoacidosis): Code(s): E11.10 - Type 2 diabetes mellitus with ketoacidosis without coma Status: Inactive Assessment and Plan: 05/19 IVF bolus given in the ER and IV fluid infusion will be continued Insulin infusion will be started and Q1H glucose monitoring Serial labs will be performed Replace electrolytes as needed Will transition to SC insulin once AG is closed Consult dietitian and certified lactation educator 05/20 anion gap has closed and symptoms of clinically improved. Will transition patient to subcutaneous insulin with Lantus and with meal insulin + SSI. DC IV fluids. Start clear liquid diet and advance as tolerated to diabetic diet (2) Esophagitis: Code(s): K20.90 - Esophagitis, unspecified without bleeding Status: Inactive Assessment and Plan: Continue PPI q.12 hours (3) ORTIZ (acute kidney injury): Code(s): N17.9 - Acute kidney failure, unspecified Status: Inactive Assessment and Plan: Presented with creatinine 1.7 which is already improved to 1.37. Likely prerenal and secondary to dehydration and hypovolemia Creatinine has now improved and normalized with IV fluids. monitor urine output electrolytes and creatinine Normal CK level (4) Abdominal pain: Code(s): R10.9 - Unspecified abdominal pain Status: Acute Assessment and Plan: Likely secondary to DKA and chronic pancreatitis Lipase normal CT abdomen unremarkable Continue pain control Plan DVT prophylaxis -SCDs Stress ulcer prophylaxis -PPI Nutrition -advance diet Code Status - Full Code Transfer out of ICU today Subjective Date/time seen: 05/21/23 Overnight events reviewed. Afebrile He states he feels overall better was still has some nausea. He was able to keep the water and liquids down. Continues to complain of abdominal pain 5 to 6/10. No other symptoms. All other systems were reviewed and were negative Other Vitals acceptable Continues to be on insulin infusion and IV fluids Review of Systems Review of Systems: All systems reviewed & are unremarkable except as noted in HPI and below (HPI) Exam Narrative: General: Pt is alert awake and in NAD Lungs/Chest: Trachea central Clear BS B/L, No crackles or wheezing. Cardiac: RRR. Normal S1 S2. No murmurs Circulation: Pedal pulses are intact and symmetrical. Abdomen: Normal bowel sounds.. Soft. Mild diffuse tenderness palpation, nondistended,t Extremities: No clubbing, cyanosis or edema. Warm : Lorenzo in place Neurologic: Follows commands. Moves all 4 extremities PERRL Skin: No Rash, several tattoos Objective Data Vital Signs Vital Signs: Vital Signs - 24 hr 05/20/23 14:00 05/20/23 14:00 05/20/23 14:00 Temperature 37.0 C Pulse Rate 84 80 Respiratory Rate 22 H Blood Pressure 138/73 Pulse Oximetry 100 Oxygen Delivery Room Air 05/20/23 16:00 05/20/23 16:00 05/20/23 16:00 Temperature 37.2 C Pulse Rate 82 82 82 Respiratory Rate 22 H 22 H Blood Pressure 122/70 Pulse Oximetry 98 98 Oxygen Delivery Room Air 05/20/23 18:00 05/20/23 18:00 05/20/23 20:15 Temperature 37.2 C Pulse Rate 78 82 71 Respiratory Rate 22 H 17 Blood Pressure 120/66 132/73 Pulse Oximetry 98 99 Oxygen Delivery 05/20/23 22:00 05/20/23 20:00 05/21/23 00:00 Temperature Pulse Rate 75 Respiratory Rate 17 Blood Pressure 149/83 H Pulse Oximetry 99 Oxygen Delivery Room Air Room Air 05/20/23 20:00 05/20/23 22:00 05/21/23 00:00 Temperature Pulse Rate 76 63 80 Respiratory Rate Blood Pressure Pulse Oximetry Oxygen Delivery 05/21/23 02:00 05/21/23 00:00 05/21/23 02:45 Temperature 37.1 C Pulse Rate 69 79 70 Respiratory Rate 21 H 17 Blood Pressure 107/61 113/69 Pulse Oximetry 94 95 Oxygen Delivery 05/21/23 04:00 05/21/23 04:00 05/21/23 06:00 Temperature Pulse Rate 73 76 Respiratory Rate
--- NOTE | 2023-05-21 08:30 | PC.NURSE ---
Patient c/o nausea and abdominal pain. Patient transitioning from Insulin gtt to SQ Insulin. 0900 PO medications held until breakfast arrived and patient can tolerate PO medications.
[2023-05-21 08:32] LABS: Glucose Point of Care 218 mg/dl (65-105)
[2023-05-21] MEDS: MORPHINE SULFATE (*CRX) 2 MG/ML INJ IV PUSH (09:02)
[2023-05-21] MEDS: POTASSIUM/PHOSPHORUS/SODIUM 1.5 GM PACKET 1 PACKET PO (10:29)
[2023-05-21] MEDS: PANTOPRAZOLE 40 MG TABLET PO ×2 (10:30→20:45)
[2023-05-21 11:39] LABS: Glucose Point of Care 290 mg/dl (65-105)
[2023-05-21] MEDS: INSULIN ASPART (*BKC) 100 UNITS/ML 8 UNITS SUB-Q ×2 (11:43→17:27)
[2023-05-21] MEDS: INSULIN ASPART (*BKC) 100 UNITS/ML SUB-Q (11:43)
--- NOTE | 2023-05-21 16:01 | PC.NURSE ---
Patient c/o new back pain.Dr. Ledbetter notified, MD to come to bedside to assess patient.
[2023-05-21 16:43] LABS: Glucose Point of Care 169 mg/dl (65-105)
--- NOTE | 2023-05-21 17:00 | PM.IMPN ---
Progress Note: A&P Assessment and Plan (1) Diabetic keto-acidosis: Qualifiers: Diabetes mellitus type: type 1 Code(s): E11.10 - Type 2 diabetes mellitus with ketoacidosis without coma Status: Inactive Plan Patient currently being transition. Continue serial monitoring. Hopefully home tomorrow if parameters are stable. He complains of severe tenderness and pain at the right infra scapular region. Check x-ray T-spine. He already has [place] p.r.n. which I advised he can use. Full code. SCDs. Protonix. Subjective Date/time seen: 05/21/23 17:00 Interval history: No acute overnight events. Patient being transition to basal bolus plus sliding scale with meal. He complains of 10 out 10 pain at the back under the right scapula. 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 He said he cannot sleep last night due to this pain. Review of Systems Review of Systems: All systems reviewed & are unremarkable except as noted in HPI and below (Subjective) Exam Const: General: cooperative and no acute distress Other: No bony abnormalities. Resp: Effort & Inspection: normal respiratory effort Auscultation: clear to auscultation bilaterally Cardio: Rate: regular rate Rhythm: regular rhythm Heart sounds: S1 normal heart sound present and S2 normal heart sound present GI: GI Palp: No abdominal tenderness Auscultation: normal bowel sounds Objective Data Vital Signs Vital Signs: Vital Signs - 24 hr 05/20/23 18:00 05/20/23 18:00 05/20/23 20:15 Temperature 98.9 F Pulse Rate 78 82 71 Respiratory Rate 22 H 17 Blood Pressure 120/66 132/73 Pulse Oximetry 98 99 Oxygen Delivery 05/20/23 22:00 05/20/23 20:00 05/21/23 00:00 Temperature Pulse Rate 75 Respiratory Rate 17 Blood Pressure 149/83 H Pulse Oximetry 99 Oxygen Delivery Room Air Room Air 05/20/23 20:00 05/20/23 22:00 05/21/23 00:00 Temperature Pulse Rate 76 63 80 Respiratory Rate Blood Pressure Pulse Oximetry Oxygen Delivery 05/21/23 02:00 05/21/23 00:00 05/21/23 02:45 Temperature 98.7 F Pulse Rate 69 79 70 Respiratory Rate 21 H 17 Blood Pressure 107/61 113/69 Pulse Oximetry 94 95 Oxygen Delivery 05/21/23 04:00 05/21/23 04:00 05/21/23 06:00 Temperature Pulse Rate 73 76 Respiratory Rate Blood Pressure Pulse Oximetry Oxygen Delivery Room Air 05/21/23 04:00 05/21/23 06:00 05/21/23 08:00 Temperature 98.4 F Pulse Rate 71 76 62 Respiratory Rate 16 17 Blood Pressure 112/56 L 113/63 Pulse Oximetry 99 95 Oxygen Delivery 05/21/23 08:00 05/21/23 08:00 05/21/23 10:00 Temperature 98.3 F 98.2 F Pulse Rate 67 71 Respiratory Rate 14 22 H Blood Pressure 112/59 L 125/75 Pulse Oximetry 97 97 99 Oxygen Delivery Room Air 05/21/23 10:00 05/21/23 12:00 05/21/23 12:00 Temperature 98.3 F Pulse Rate 72 72 62 Respiratory Rate 20 Blood Pressure 127/86 Pulse Oximetry 100 Oxygen Delivery 05/21/23 12:00 05/21/23 14:00 05/21/23 14:00 Temperature Pulse Rate 76 76 Respiratory Rate 16 Blood Pressure 123/75 Pulse Oximetry 98 97 Oxygen Delivery Room Air 05/21/23 16:00 05/21/23 16:00 Temperature 98.3 F Pulse Rate 62 65 Respiratory Rate 16 Blood Pressure 126/80 Pulse Oximetry 98 Oxygen Delivery Intake/Output Intake/Output: Intake & Output 05/18/23 05/19/23 05/20/23 05/21/23 23:59 23:59 23:59 23:59 Intake Total 1026.6 2944 Output Total 1200 3300 Balance -173.4 -356 Meds/Results Medications: Active Medications Generic Name Dose Route Start Last Admin Trade Name Freq PRN Reason Stop Dose Admin Acetaminophen 650 mg 05/20/23 13:38 Acetaminophen 325 Mg Tablet PO Q4H PRN Headache, mild pain or fever Hydrocodone Bitart/Acetaminophen 1 tab 05/20/23 13:38 05/21/23 16:41 Hydrocodone/Acetaminophen (*Crx) 5-325 Mg Tablet PO 1 tab
[2023-05-21 20:37] LABS: Glucose Point of Care 175 mg/dl (65-105)
[2023-05-22] VITALS (7 sets, daily range): BP systolic 111–131; BP diastolic 57–90; PULSE 55–80; RESP 12–22; TEMP 36.7–36.8; O2SAT 92–96
[2023-05-22] MEDS: HYDROcodone/acetaminophen (*CRX) 5-325 MG TABLET 1 TAB PO (04:06)
[2023-05-22 04:10] LABS: Hematocrit 38.3 % (42.0-52.0); Hemoglobin 12.7 g/dL (14.0-18.0); Mean Corpuscular HGB Conc 33.2 g/dl (32-36); Mean Corpuscular Hemoglobin 29.8 pg (26-34); Mean Corpuscular Volume 89.9 fl (80-100); Mean Platelet Volume 9.7 fl (7.4-10.4); Platelet Count Result 246 k/mm3 (150-375); Red Blood Count 4.26 M/mm3 (4.6-6.20); Red Cell Distribution Width 12.2 % (11.5-14.5); White Blood Count 6.5 K/mm3 (4.5-10.0)
[2023-05-22 04:28] LABS: Alanine Aminotransferase 20 U/L (6-50); Albumin Level 3.3 g/dL (3.5-5.1); Alkaline Phosphatase 42 U/L (38-126); Anion Gap 4 mmol/L (4-12); Aspartate Amino Transferase 18 U/L (17-59); Bilirubin,Total 0.8 mg/dL (0.2-1.3); Blood Urea Nitrogen 15 mg/dL (9-20); Calcium 8.2 mg/dL (8.4-10.2); Carbon Dioxide 24 mmol/L (22-30); Chloride 104 mmol/L (98-107); Estimated CRCL calculation 138 ml/min; Estimated Glomerular Filt Rate > 60; Glucose 286 mg/dL (65-110); Magnesium 2.1 mg/dL (1.6-2.3); Potassium 3.8 mmol/L (3.4-5.0); Sodium 132 mmol/L (137-145)
--- NOTE | 2023-05-22 08:22 | PM.DS ---
DS: Admitting Diagnosis Discharge Date April 21, 2023 Admitting Diagnosis DKA DS: Discharge Diagnosis Discharge Diagnosis (1) DKA (diabetic ketoacidosis): Code(s): E11.10 - Type 2 diabetes mellitus with ketoacidosis without coma Status: Inactive DS: Summary Hospital Course Hospital Course: This is a 37-year-old male with past medical history insulin-dependent diabetes mellitus with noncompliance who presents with DKA and ORTIZ. He was treated in the ICU per DKA protocol successfully transition to meals and his usual basal bolus insulin regimen. Patient was educated and counseled on the importance of adhering to medical recommendations. He is also supposed to follow up with GI for esophageal thickening and that has been reiterated as well. On 05/21 the patient is stable and ready for discharge to home. He is in understanding and agreement with the plan especially with compliance with medications. He knows to follow up with GI and his PCP. The patient was full code during his admission. Time Spent with Patient Time attestation: Total time spent providing and/or coordinating discharge services: Exam Const: General: cooperative and no acute distress Resp: Effort & Inspection: normal respiratory effort Auscultation: clear to auscultation bilaterally Cardio: Rate: regular rate Rhythm: regular rhythm Heart sounds: S1 normal heart sound present and S2 normal heart sound present GI: GI Palp: No abdominal tenderness Auscultation: normal bowel sounds DS: Data Data Completed and Pending Labs on day of discharge: Labs from last 24 hours 05/22/23 05/21/23 05/21/23 03:59 20:34 16:40 WBC 6.5 RBC 4.26 L Hgb 12.7 L Hct 38.3 L MCV 89.9 MCH 29.8 MCHC 33.2 RDW 12.2 Plt Count 246 MPV 9.7 Sodium 132 L Potassium 3.8 Chloride 104 Carbon Dioxide 24 Anion Gap 4 BUN 15 Creatinine 0.70 Estim Creat Clear Calc 138 Estimated GFR > 60 Glucose 286 H POC Capillary Glucose 175 H 169 H Calcium 8.2 L Phosphorus 2.0 L Magnesium 2.1 Total Bilirubin 0.8 AST 18 ALT 20 Alkaline Phosphatase 42 Total Protein 6.0 L Albumin 3.3 L 05/21/23 05/21/23 11:33 08:29 WBC RBC Hgb Hct MCV MCH MCHC RDW Plt Count MPV Sodium Potassium Chloride Carbon Dioxide Anion Gap BUN Creatinine Estim Creat Clear Calc Estimated GFR Glucose POC Capillary Glucose 290 H 218 H Calcium Phosphorus Magnesium Total Bilirubin AST ALT Alkaline Phosphatase Total Protein Albumin Discharge Plan Discharge Attending physician on discharge: Carlee Ledbetter Consulting providers: Justo Keene Discharging Clinician: Carlee Ledbetter Patient Disposition: Home, Self-Care Activity: june shower Diet: diabetic Patient Instructions: Antibiotic Form, Diabetic Ketoacidosis (GEN), Basic Carbohydrate Counting (DC) Stand Alone Forms: General Discharge Information Follow-up/Referrals: [facility],YAYO Woo [Primary Care Provider] - 1 Week Discharge Medications: Continued insulin glargine [Lantus U-100 Insulin] 100 unit/mL Solution 30 unit SUBCUT DAILY insulin aspart U-100 [Novolog U-100 Insulin aspart] 100 unit/mL Solution 10 unit subcut TIDWMEAL Date of admission: 05/20/23 15:42 Primary Care Provider: ColleenChilo Admitting Provider: Neo Torres Attending physician on admission: Neo Torres Condition: Improved
[2023-05-22] MEDS: INSULIN GLARGINE (*BKC) 100 UNITS/ML 30 UNITS SUB-Q (09:08)
[2023-05-22] MEDS: PANTOPRAZOLE 40 MG TABLET PO (09:08)
[2023-05-22] MEDS: INSULIN ASPART (*BKC) 100 UNITS/ML 8 UNITS SUB-Q (09:09)
[2023-05-22] MEDS: INSULIN ASPART (*BKC) 100 UNITS/ML SUB-Q (09:09)
[2023-05-22 09:10] LABS: Glucose Point of Care 258 mg/dl (65-105)
== END 2023-05-22 09:38 | disposition home or self-care (01) | DRG 638 ==
PROVIDERS: Internal Medicine; Admitting Provider Student in an Organized Health Care Education/Training Program; PCP Physician Assistant; Visit Provider General Practice
DX: E10.10 Type 1 diabetes mellitus with ketoacidosis without coma (principal); K86.1 Other chronic pancreatitis; N17.9 Acute kidney failure, unspecified; K20.90 Esophagitis, unspecified without bleeding; E86.0 Dehydration; E86.1 Hypovolemia; K58.0 Irritable bowel syndrome with diarrhea; Z98.1 Arthrodesis status; Z90.49 Acquired absence of other specified parts of digestive tract; Z91.148 Patient's other noncompliance with medication regimen for other reason
CPT/HCPCS: 36415; 72072; 76705; 80048; 80053; 82550; 82948; 83735; 84100; 85027; A9270; J1815; J2270; J2405; J3480

== ENCOUNTER 2023-05-26 12:45 | Emergency (ER) | payer BC, OTHER, SELFPAY ==
[2023-05-26] VITALS (8 sets, daily range): BP systolic 104–143; BP diastolic 62–89; PULSE 93; RESP 22; TEMP 36.8; O2SAT 94–100
--- NOTE | ~2023-05-26 | XR_ITS ---
EXAMINATION: XR chest 1V portable 05/26/2023 12:59 INDICATION: Hyperglycemia. PROCEDURE: AP portable chest COMPARISON: 05/20/2023 FINDINGS: The lungs are clear. The cardiomediastinal silhouette is within normal limits. There are no pleural effusions. There is no pneumothorax suspected. IMPRESSION: 1: NO ACUTE CARDIOPULMONARY DISEASE. Reviewed, dictated and finalized at location B.
[2023-05-26 12:50] LABS: Glucose Point of Care 372 mg/dl (65-105)
[2023-05-26] MEDS: PANTOPRAZOLE SODIUM IV 40 MG VIAL 80 MG IV PUSH (13:06)
[2023-05-26] MEDS: ONDANSETRON INJ 4 MG/2 ML VIAL IV PUSH (13:06)
[2023-05-26] MEDS: SODIUM CHLORIDE 0.9% IV 1,000 ML 999 ML IV CONT (13:06)
[2023-05-26 13:23] LABS: Basophils Absolute Auto 0.02 K/mm3 (0.00-0.10); Basophils Percent Auto 0.1 % (0.0-1.0); Hematocrit 42.8 % (40.0-54.0); Hemoglobin 14.5 g/dL (14.0-18.0); Immature Granulocyte Absolute 0.07 K/mm3 (0.00-0.00); Immature Granulocyte Percent A 0.5 % (0.0-0.0); Lymphocytes Absolute Auto 0.96 K/mm3 (1.10-4.50); Lymphocytes Percent Auto 6.7 % (18.0-42.0); Mean Corpuscular HGB Conc 33.9 g/dL (32-36); Mean Corpuscular Hemoglobin 29.7 pg (27.0-31.0); Mean Corpuscular Volume 87.7 fL (78.0-102.0); Mean Platelet Volume 10.2 fl (8.7-11.0); Monocytes Absolute Auto 0.22 K/mm3 (0.10-0.90); Monocytes Percent Auto 1.5 % (2.0-11.0); Neutrophils Absolute Auto 12.99 K/mm3 (1.70-7.20); Neutrophils Percent Auto 91.2 % (50.0-70.0); Platelet Count Result 322 K/mm3 (150-420); Red Blood Count 4.88 M/mm3 (4.70-6.10); White Blood Count 14.3 K/mm3 (4.8-10.8)
[2023-05-26 13:34] LABS: Carboxyhemoglobin 0.6 % (0-1.5); Methemoglobin ABG 0.4 % (0-1.5); Oxygen Content ABG 18.9 %vol (16.0-22.0); Oxygen Saturation ABG 94.8 % (95-97); Oxyhemoglobin 93.9 % (94-100); PO2 ABG 76.1 mmHg (80-90); Reduced Hemoglobin 5.1 % (0-1.5); Total Hemoglobin 14.3 g/dL (12.0-18.0); pH ABG 7.43 (7.35-7.45)
[2023-05-26 13:35] LABS: Device ROOM AIR; Modified Allen's Test Pass; Site Drawn LEFT RADIAL
[2023-05-26 13:43] LABS: Lactic Acid Reflex 1.6 mmol/L (0.4-2.0)
[2023-05-26 13:49] LABS: Alanine Aminotransferase 71 U/L (16-63); Albumin Level 3.5 g/dL (3.4-5.0); Alkaline Phosphatase 54 U/L (46-116); Anion Gap 9 mmol/L (4-12); Aspartate Amino Transferase 23 U/L (15-37); Bilirubin,Total 1.1 mg/dL (0.00-1.00); Blood Urea Nitrogen 15 mg/dL (7-18); CRP 0.6 mg/dL (0.0-0.9); Calcium 9.1 mg/dL (8.5-10.1); Carbon Dioxide 30 mmol/L (21-32); Chloride 96 mmol/L (98-108); Estimated CRCL calculation 98 ml/min; Estimated Glomerular Filt Rate > 60; Glucose 395 mg/dL (70-99); Magnesium 1.6 mg/dL (1.8-2.4); Osmolality Calculated 296 mOsm/kg (285-295); Phosphorus 4.3 mg/dL (2.6-4.7); Potassium 4.2 mmol/L (3.5-5.1); Sodium 135 mmol/L (136-145); Total Protein 6.9 g/dL (6.4-8.2)
--- NOTE | 2023-05-26 13:58 | ED.NAVMDI ---
HPI - Nausea/Vomiting/Diarrhea General Chief complaint: Nausea/Vomiting/Diarrhea Stated complaint: DKA Time Seen by Provider: 05/26/23 12:46 Source: patient and family Mode of arrival: ambulatory Limitations: no limitations History of Present Illness HPI Narrative: This is a 37-year-old diabetic insulin dependent recently discharged from the hospital with DKA and diagnosed with esophagitis presents with some continued epigastric discomfort with some nausea and vomiting currently no diarrhea no fever chills no chest pain or shortness of breath. MD elicited complaint: nausea and vomiting Onset (ago): day(s) Description of vomiting: watery Associated nausea: Yes Associated abdominal pain: No Related Data Home Medications Medication Instructions Recorded Confirmed insulin aspart U-100 100 unit/mL 10 unit subcut TIDWMEAL 05/20/23 05/26/23 subcutaneous solution (Novolog U-100 Insulin aspart) insulin glargine 100 unit/mL 30 unit subcut DAILY 05/20/23 05/26/23 subcutaneous solution (Lantus U-100 Insulin) Allergies Allergy/AdvReac Type Severity Reaction Status Date / Time No Known Allergies Allergy Verified 05/26/23 12:46 Review of Systems Review of Systems: All systems reviewed & are unremarkable except as noted in HPI and below PMFSH Past Medical History Medical History Chronic pancreatitis Diabetes mellitus Type 1 Surgical History Surgical History History of appendectomy History of lumbar spinal fusion L5-S1 Social History Social History Smoking status: Never smoker Alcohol intake: unknown Substance use: never Substance use type: does not use Do You Feel Safe in your Home?: Yes Lack of Transportation: No Lack of Food: Never True Current Housing: Decline to Answer Concerned About Future Housing: Decline to Answer Difficulty Paying Gas/Electric Bills: Decline to Answer Difficulty Paying for Meds: Decline to Answer Currently Unemployed: Decline to Answer Education: Decline to Answer Difficulty w/ Childcare or Family Care: Decline to Answer Spiritual care concerns: No Exam Const: General: healthy appearing and no acute distress Nutritional Appearance: well nourished Orientation/consciousness: patient oriented x3 Limitations: no limitations HENMT: Head: normal to inspection Resp: Effort & Inspection: normal respiratory effort Auscultation: clear to auscultation bilaterally Cardio: Rate: regular rate Rhythm: regular rhythm GI: GI Palp: Yes Soft to palpation and Yes Tenderness to palpation present (GI) Other: Epigastric tenderness with palpation : General: Yes bladder normal to palpation Back/Spine/Pelvis: Back: no CVA tenderness Neuro: General: patient oriented x3, moves all extremities and no meningeal signs Psych: Mental Status: mental status grossly normal Affect: normal affect Course Course Emergency Course: blood glucose of 395 and rest of the blood work shows no evidence of DKA EKG normal sinus rhythm chest x-ray shows no acute cardiopulmonary abnormalities. Patient did receive IV Protonix Zofran and Reglan along with IV fluids. Vital Signs Vital signs: Vital Signs Temperature 36.8 C 05/26/23 12:50 Pulse Rate 93 05/26/23 12:50 Respiratory Rate 22 H 05/26/23 12:50 Blood Pressure 143/89 H 05/26/23 12:50 Pulse Oximetry 96 05/26/23 12:50 Oxygen Delivery Room Air 05/26/23 12:50 Temperature 36.8 C 05/26/23 12:50 Pulse Rate 93 05/26/23 12:50 Respiratory Rate 22 H 05/26/23 12:50 Blood Pressure 143/89 H 05/26/23 12:50 Pulse Oximetry 96 05/26/23 12:50 Oxygen Delivery Room Air 05/26/23 12:50 MDM - Nausea/Vomiting/Diarrhea Lab Data 05/26/23 13:07 05/26/23 13:07 Labs: Lab Results 05/08
[2023-05-26 14:00] LABS: SARS-CoV-2 RNA PCR Negative (Negative)
[2023-05-26 14:01] LABS: Influenza A QL RT-PCR Negative (Negative); Influenza B QL RT-PCR Negative (Negative); RSV RNA, RT-PCR Negative (Negative)
[2023-05-26] MEDS: METOCLOPRAMIDE HCL INJ 10 MG/2 ML VIAL IV PUSH (14:01)
[2023-05-26] MEDS: SODIUM CHLORIDE 0.9% IV 500 ML 999 ML IV CONT (14:08)
== END 2023-05-26 14:33 | disposition home or self-care (01) ==
PROVIDERS: Emergency Provider Emergency Medicine; PCP Physician Assistant
DX: K20.90 Esophagitis, unspecified without bleeding (principal); E10.65 Type 1 diabetes mellitus with hyperglycemia; K86.1 Other chronic pancreatitis; Z79.4 Long term (current) use of insulin; Z98.1 Arthrodesis status; Z20.822 Contact with and (suspected) exposure to COVID-19
CPT/HCPCS: 36415; 36600; 71045; 80053; 82375; 82805; 82948; 83050; 83605; 83735; 84100; 85025; 86140; 87637; 96361; 96374; 96375; 99284; C9113; J2405; J2765; J7030; J7040; J7120

== ENCOUNTER 2023-07-24 15:30 | Emergency (ER) | payer BC, OTHER, SELFPAY ==
--- NOTE | ~2023-07-24 | XR_ITS ---
XR shoulder RT min 2V Ordering provider: Bell Prieto MD History: . Rt. shoulder pain, tenderness over AC joint . Comparison: None. FINDINGS: BONES: No acute fracture or dislocation. Postoperative changes in the acetabulum. JOINT SPACES: The acromioclavicular joint is normal. The glenohumeral joint is normal. SOFT TISSUES: Normal. IMPRESSION: No acute osseous abnormality right shoulder. Reviewed, dictated and finalized at location A.
[2023-07-24 15:30] VITALS: BP 153/93; PULSE 78; RESP 16; TEMP 36.5; O2SAT 97
--- NOTE | 2023-07-24 15:36 | ED.UPPEXIN ---
HPI - Extremity Injury (Upper) General Chief Complaint: Extremity Injury, Upper Stated Complaint: right shoulder pain Time Seen by Provider: 07/24/23 15:36 History of Present Illness HPI narrative: Patient is a 37 year old male with history of chronic back pain, diabetes. chronic pancreatitis here with right shoulder pain. He notes pain first began about a week ago and was significantly worse when he woke up this morning. Pain makes it difficult for him to lift and use his arm due to the pain. 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 He took Robaxin prior to presentation for pain which he is prescribed for chronic back pain and this did not help his shoulder pain. Of note, he has struggled with pain in this right shoulder for years, did have surgery performed on this shoulder several years ago. He denies numbness or weakness to the arm or hand. He did come here from his kid's sporting event, had been drinking gatorade and powerade in the hot sun. Noted his blood sugar was in the 300s and just gave himself a bolus of insulin prior to my evaluation. Related Data Home Medications Medication Instructions Recorded Confirmed insulin aspart U-100 100 unit/mL 10 unit subcut TIDWMEAL 05/20/23 05/26/23 subcutaneous solution (Novolog U-100 Insulin aspart) insulin glargine 100 unit/mL 30 unit subcut DAILY 05/20/23 05/26/23 subcutaneous solution (Lantus U-100 Insulin) methocarbamol 500 mg tablet 500 mg PO DAILY 07/24/23 07/24/23 Allergies Allergy/AdvReac Type Severity Reaction Status Date / Time No Known Allergies Allergy Verified 07/24/23 15:41 Review of Systems Review of Systems: All systems reviewed & are unremarkable except as noted in HPI and below PMFSH Past Medical History Medical History Chronic pancreatitis Diabetes mellitus Type 1 Surgical History Surgical History History of appendectomy History of lumbar spinal fusion L5-S1 Social History Social History Smoking status: Never smoker Alcohol intake: unknown Substance use: never Substance use type: does not use Do You Feel Safe in your Home?: Yes Lack of Transportation: No Lack of Food: Never True Current Housing: Decline to Answer Concerned About Future Housing: Decline to Answer Difficulty Paying Gas/Electric Bills: Decline to Answer Difficulty Paying for Meds: Decline to Answer Currently Unemployed: Decline to Answer Education: Decline to Answer Difficulty w/ Childcare or Family Care: Decline to Answer Spiritual care concerns: No Exam Narrative: GENERAL: Well-appearing, well-nourished, and in no acute distress. cous membranes moist. NECK: Supple. Non tender. CHEST: Clear to auscultation. No respiratory distress. HEART: Regular rate and rhythm. Normal peripheral pulses. ABDOMEN: Soft, nontender, nondistended. EXTREMITIES: Tenderness over the AC joint on the right shoulder, no obvious deformities. Decreased abduction of the shoulder as well as flexion. No tenderness over the humeral head or humerous. Strong radial pulse on the right. SKIN: Warm, dry, no rash. no overlying skin discoloration. NEURO: No focal deficits. Alert and oriented x3. Course Course Emergency Course: Chart review performed. Patient was last hospitalized in May 2023 for DKA, transferred to [facility] ICU. He is here complaining of R shoulder pain. Triage virals normal. Initial blood sugar 323, patient already gave himself insulin, denies any hyperglycemia/DKA symptoms. Will monitor. XR ordered to evaluate for possible AC separation vs fracture. Lares ordered for pain. X-ray negative. Patient clinically has Type 1 AC separation, advised sling, early range of motion and strength exercises. Tylenol a
[2023-07-24 15:43] LABS: Glucose Point of Care 323 mg/dl (65-105)
[2023-07-24] MEDS: HYDROcodone/acetaminophen (*CRX) 5-325 MG TABLET 1 TAB PO (15:59)
[2023-07-24 16:40] LABS: Glucose Point of Care 158 mg/dl (65-105)
[2023-07-24 16:46] VITALS: BP 154/99; PULSE 87; RESP 16; O2SAT 99
== END 2023-07-24 16:50 | disposition home or self-care (01) ==
PROVIDERS: Emergency Provider Student in an Organized Health Care Education/Training Program; PCP Physician Assistant
DX: S43.001A Unspecified subluxation of right shoulder joint, initial encounter (principal); E11.9 Type 2 diabetes mellitus without complications; K86.1 Other chronic pancreatitis; X58.XXXA Exposure to other specified factors, initial encounter
CPT/HCPCS: 73030; 82948; 99283; A4565; A9270

== ENCOUNTER 2024-08-30 21:08 | Emergency (ER) | payer OTHER, SELFPAY ==
--- NOTE | ~2024-08-30 | XR_ITS ---
EXAMINATION: XR chest 2V DATE: 08/30/2024 21:49 INDICATION: Right lung pain. Diabetic ketoacidosis. TECHNIQUE: PA and lateral views of the chest were obtained. COMPARISON: Chest radiograph dated 05/26/2023 FINDINGS: The lungs remain clear with no focal airspace opacities, pulmonary edema, pleural effusion or pneumot horax. The cardiomediastinal silhouette is normal. Fixation screws at the anteroinferior right glenoi d. Chronic appearing mild anterior wedging of a lower thoracic vertebral body, likely T12. IMPRESSION: 1. No acute cardiopulmonary disease. Reviewed, dictated and finalized at location A.
[2024-08-30 21:08] VITALS: BP 156/99; PULSE 96; RESP 18; TEMP 36.3; O2SAT 94
--- OUTSIDE RECORDS SUMMARY | 2024-08-30 21:12 | XMS_ITS ---
Author Organization Unknown Address [address] [place], [place] [id number] Phone Care Team Providers Care Talent Buyer Name Role Phone nicoletteAdolfo DEANNA Attending Unavailable Social History Type Status Start Date End Date Code Code Syst em Smoking History Unknown if ever smoked [id number] Sex Male Hospital Discharge Instructions Should you have any questions prior to discharge, please contact a member of your healthcare team. If you have left the hospital and have any questions, please contact your primary care physician. Reason For Referral No Data Found Plan of Treatment No Data Found Encounters Encounter Diagnosis Start Date Code Code Sys tem History and physical examination, pre-employment 06/21 [id number] SNOMED-CT Personal Care Team Section
--- OUTSIDE RECORDS SUMMARY | 2024-08-30 21:12 | XMS_ITS ---
Author Organization Unknown Address [address] [place], [place] [id number] Phone Care Team Providers Care Wall Worker Name Role Phone nicoletteAdolfo DEANNA Attending Unavailable Social History Type Status Start Date End Date Code Code Syst em Smoking History Unknown if ever smoked [id number] Sex Male Hospital Discharge Instructions [...] Sys tem History and physical examination, pre-employment 12/08 [id number] SNOMED-CT Personal Care Team Section
--- OUTSIDE RECORDS SUMMARY | 2024-08-30 21:12 | XMS_ITS | Clinical Summary ---
Author Organization [facility] Address [address] [place] [id number] Care Team Providers Care Rag Baler Name Role Phone Chilo Collado Primary Care Provider [phone] Social History Tobacco Use Types Packs/Day Years Used Date Smoking Tobacco: Never Assessed Sex and Gender Information Value Date Recorded Sex Assigned at Male 02/28/2024 12:59 PM CAPACITY MANAGEMENT SPECIALIST Legal Sex Male 1:30 PM CDT Gender Identity Not on file Sexual Orientation Not on file Plan of Treatment Health Maintenance Due Date Last Done Comments Annual Physical 1988 Hepatitis C 11/17/2003 DTaP, Tdap and Td Vaccines ( 1 - Tdap) 2004 Hepatitis B Vaccines (1 of 3 - 19+ 3-dose series) 2004 HPV Vaccines (1 - 3-dose SCD M series) 2012 COVID-19 Vaccine ( - 2023-2 5 season) 2023 Meningococcal B Vaccine Aged Out No l onger eligible based on patient's age to complete this topic Meningococcal Vaccine Aged Out No christi shruthi eligible based on patient's age to complete this topic Pneumococcal Vaccine: Pediat rics (0 to 5 Years) and At-Risk Patients (6 to 49 Years) Aged Out No longer eligible b ased on patient's age to complete this topic RSV Immunizations Under 20 Months Aged Out No longer eligible based on patient's age to complete this topic Insurance [facility] Care Teams Rag Baler Relationship Specialty Start Date End Date Chilo Collado PA [address] [place] [id number] PCP - General PHYSICIAN PROGRAM/MUSIC DIRECTOR 02/28/24
--- OUTSIDE RECORDS SUMMARY | 2024-08-30 21:12 | XMS_ITS | Patient Health Record ---
Author Organization [facility] Address [address] [facility] [place] [id number] Support Name Relationship Address Phone Keegan Monzon Guarantor Unknown [phone] Reason For Referral No Information Plan Of Treatment No Information
--- OUTSIDE RECORDS SUMMARY | 2024-08-30 21:12 | XMS_ITS | Clinical Summary ---
[facility] Address [address] [place] [address] Care Team Providers Care Steel Heater Name Role Phone Chilo Collado Primary Care Provider Allergies No known active allergies Medications MiniMed 780G Insulin Pump misc 1 Device continuously Medtronic 780G Insulin pump with Guardian 4 transmittor and Guardian 4 sensors with 7 day extend insertion set. 1 each 3 Active gabapentin (NEURONTIN) 300 mg capsuleIndicatio ns:Diabetic Peripheral Neuropathy,Neuro pathic Pain Take 1 capsule (300 mg total) by mouth 2 (two) times a day E11.65 180 capsule 5 Active lisinopriL (PRINIVIL,ZESTRI L) 10 mg tablet Take 1 tablet (10 mg total) by mouth daily 90 tablet 5 Active promethazine (PHENERGAN) 25 mg tablet Take 1 tablet (25 mg total) by mouth every 8 (eight) hours as needed for nausea or vomiting 90 tablet 5 Active levothyroxine (SYNTHROID) 137 mcg tablet Take 1 tablet (137 mcg total) by mouth daily . Take on an empty stomach. 30 minutes prior to food. DO NOT TAKE WITH ANY OTHER MEDICATIONS OR FOOD. 90 tablet 5 026 Active insulin glargine 100 unit/mL (3 mL) pen for injection Inject 50 Units under the skin daily For insulin pump failure. E10.65 15 mL 11 5 Active insulin aspart (NovoLOG) 100 unit/mL (3 mL) pen for injection Inject 20 Units under the skin 3 (three) times a day before meals For insulin pump failure. E10.65 15 mL 3 5 Active insulin aspart (NovoLOG) 100 unit/mL vial for injection Infuse insulin per Medtronic 780g insulin pump. Total daily dose - 150 units. E10.65 140 mL 4 5 Active atorvastatin (LIPITOR) 20 mg tablet Take 1 tablet (20 mg total) by mouth nightly 90 tablet 4 5 Active pen needle, diabetic 32 gauge x 5/32 needle Use to inject insulin up to 4times/day. For insulin pump failure E10.65 100 each 4 5 Active Baqsimi 3 mg/actuation spray,non-aeroso lIndications:pat ient with diabetes mellitus at risk of hypoglycemia Administer 1 spray into one nostril as needed (use for severe hypoglycemia requiring the assistance of another.) E10.65 2 each 11 5 Active Active Problems Problem Noted Date Diagnosed Date Overweight with body mass in dex (BMI) of 29 to 29.9 in adult 03/06/2024 Medtronic 780g Insulin pump in place 03/06/2024 Assessment & Plan (03/06/2024 12:17 PM CHEMISTRY MANAGER): This is a chronic condition which is improving but not at at goal. Download reviewed from 02/22/2024 to 03/06/2024 Type of insulin pump- Medtronics 780g Pump settings : Basal- increase 2.25 IC - 4 ISF-26 Active insulin time 2hrs. TARGET GLUCOSE- adjusted to 100-110 Avg BG- 191+/- 77 Avg Total daily insulin- 108 units Avg daily basal - 45 units (42%) Avg daily bolus - 63 units (58%) Interpretation- 48% time in range. 51% hyperglycemia. 1% hypoglycemia. In smart guard 89%. 7% manual mode. Encouraged to bolus for meals prior to eating. Baqsimi ordered for episodes of hypoglycemia Hypertension associated with type 1 diabetes alejandro litus 03/06/2024 Intractable chronic post-traumatic headache 02/08 Assessment & Plan (03/06/2024 12:18 PM CHEMISTRY MANAGER): He states that his headache started in 2008 after returning from [place] He reports daily headaches ranging from 5-10 out of 10 He reports most of the time nothing helps. 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 Goal is LDL less than 70 Continue atorvastatin Encouraged to eat healthy, include fresh fruits and vegetables daily and avoid eating fried foods more than once per week. Encouraged to take medications as prescribed. Acquired hypothyroidism 10/27/2022 Assessment & Plan (06/01/2023 4:57 PM CDT): This is a chronic condition which is not at goal of TSH between 0.3 to 4.2 mclUnits/ml Personally reviewed lab. Is not taking medications as prescribed on an empty stomach Lab Results Component Value Date TSH 10.75 (H) 10/26/2022 Continue Levothryoxine 130 mcg po daily in am Discussed the importance of taking Levothryoxine on a empty stomach, which means one hour before eating or two hours after eating. Discussed food in the stomach will interfere with absorption of Levothyroxine. Discussed Calcium, antacids and iron supplements will interfere with the absorption of Levothyroxine, encouraged to take these at a different time of the day. Assessment & Plan (10/27/2022 8:39 AM CDT): This is a chronic condition which is not at goal of TSH between 0.3 to 4.2 mclUnits/ml Personally reviewed lab. Lab Results Component Value Date TSH 10.75 (H) 10/26/2022 Start on [id number] mcg po daily in am Discussed the importance of taking Levothryoxine on a empty stomach, which means one hour before eating or two hours after eating. Discussed food in the stomach will interfere with absorption of Levothyroxine. Discussed Calcium, antacids and iron supplements will interfere with the absorption of Levothyroxine, encouraged to take these at a different time of the day. Repeat TSH, T4 in 8 weeks, Type 1 diabetes mellitus with hyperglycemia 10/08 Assessment & Plan (06/01/2023 4:56 PM CDT): This is a chronic condition which is out of control, not at goal . Goal is less than 7%. Not at goal Due to lack of insulin delivery. States he gets too busy and forgets to take his insulin, especially while working in the [employer] Personally reviewed most recent A1c - Lab Results Component Value Date HGBA1C 11.2 06/01/2023 Personally reviewed POC blood sugar- not at goal of 80-180 Lab Results Component Value Date POCGLU 462 06/01/2023 Medication- will proceed with Conexus-IT 780 g insulin pump. Continue glargine 50units daily, novolog 20 units 3 times a day prior to meals. Monitor blood sugar continuously with Dexcom 6 cgm. Encouraged annual eye exam. Monofilament foot exam completed. Protective senses intact Personally reviewed CMP eGFR- 120 Kidney function-normal Urine microalbumin/creatinine ratio - at goal. Goal is <30 Continue lisinopril B/P today- at goal . Goal is <140/90. Continues lisinopril Personally reviewed lipid panel. Not at goal. Goal is less than 70. Continue atorvastatin Assessment & Plan (10/26/2022 10:36 AM CDT): This is a chronic condition which is out of control not at goal of less than 7%. Personally reviewed most recent A1c - Lab Results Component Value Date HGBA1C 12.0 10/26/2022 Personally reviewed POC blood sugar- not at goal 80-180 Lab Results Component Value Date POCGLU 400 10/26/2022 Medication- Continue glargine 50 units daily and novolog 20 units 3 times/day. Monitor blood sugar continuously with sensor. Encouraged annual eye exam. last dilated eye exam was [facility] Monofilament foot exam completed. protective senses intact CMP needed. Urine microalbumin/creatinine ratio - needed. goal <30 not treated with DAMIAN/ARB B/P today- at goal of <140/90. lipid panel needed. Goal of less than 70. Not on statin therapy. Will proceed with Medtronic 780g insulin pump and guardian 4 sensor. He is aware that his A1c is out of control and they he is at risk for complications from diabetes such as blindness, neuropathy, amputation, kidney failure. We discussed that the insulin pump is not without problems and that he will have to care for it as prescribed. He is in agreement Social History Tobacco Use Types Packs/Day Years Used Date Smoking Tobacco: Every Day Cigarettes Smokeless Tobacco: Current Chew Comments:Chews tobacco Sex and Gender Information Value Date Recorded Sex Assigned at Not on file Legal Sex Male 12:32 PM CDT Gender Identity Not on file Sexual Orientation Not on file Obstetrics History Last Filed Vital Signs Vital Sign Reading Time Taken Comments Blood Pressure 150/92 03/06/2024 10:41 AM CHEMISTRY MANAGER Pulse - - Temperature - - Respiratory Rate - - Oxygen Saturation - - Inhaled Oxygen Concentration - - Weight 103.1 kg (227 lb 3.2 oz) 025 10:41 AM CHEMISTRY MANAGER Height 185.4 cm (6' 1) 03/06/2024 10:4 1 AM CHEMISTRY MANAGER Body Mass Index 29.98 03/06/2024 10:41 AM CHEMISTRY MANAGER Plan of Treatment Health Maintenance Due Date Last Done Comments Depression Screening 1985 Hepatitis C Screening 1985 Dilated Eye Exam 11/17/1995 DTaP/Tdap/Td Vaccine (1 - Tdap) 1996 Varicella Vaccines (1 of 2 - 13+ 2-dose series) 1998 Hepatitis B Screening 11/17/2003 Regular Well Visit/Exam 18-64 11/17/2003 Pneumococcal vaccine <65 (1 of 2 - PCV) 2004 Albumin Creatinine Ratio, Urine 10/27/2023 10/26/2022 Lipid Panel 10/27/2023 10/26/2022 eGFR 10/27/2023 10/26/2022 Foot Exam 05/31/2024 06/01/2023, 10/26/2022 Hemoglobin A1C 08/27/2024 02/28/2024, 06/01/2023, 10/26/2022 Influenza Vaccine (Season Ended) 2024 TSH Level 02/27/2025 02/28/2024, 10/26/2022 HPV Vaccines Aged Out No longer eligi ble based on patient's age to complete this topic Procedures Procedure Name Priority Date/Time Associated Diagnosis Comments HEMOGLOBIN A1C Routine 02/28/2024 TSH Routine 02/28/2024 EGFR Routine 10/26/2022 10:25 AM CDT Type 1 diabetes mellitus without complication, with long-term current use of insulin (HCC) LIPID PANEL Routine 10/26/2022 10:25 AM CDT Type 1 diabetes mellitus without complication, with long-term current use of insulin (HCC) ALBUMIN CREATININE RATIO, URINE Routine 10/26/2022 10:25 AM CDT Type 1 diabetes mellitus without complication, with long-term current use of insulin (HCC) from Last 3 Months or Most Recently Relevant to Health Maintenance Results * (ABNORMAL) TSH (02/28/2024) Scribed TSH 10.40(A) 0.45 - 4.50 mcU/mL EXTERNAL LAB Blood 02/28/2024 Historical Provider MD LAB BLOOD ORDERABLES Tanvi l Result EXTERNAL LAB * (ABNORMAL) Hemoglobin A1c (02/28/2024) SCRIBED Hemoglobin A1c 8.9(A) 4.8 - 5.6 % EXTERNAL LAB Blood 02/28/2024 Historical Provider MD LAB BLOOD ORDERABLES Tanvi l Result EXTERNAL LAB * eGFR (10/26/2022 10:25 AM CDT) eGFR 120 mL/min/1. 73 m2 ERICA WEISS) Comment: Interpretive Data Reference Interval Normal >/= 90 mL/min/1.73m2 Mildly decreased* 60 - 89 mL/min/1.73m2 Mildly to moderately decreased 45 - 59 mL/min/1.73m2 Moderately to severely decreased 30 - 44 mL/min/1.73m2 Severely decreased 15 - 29 mL/min/1.73m2 Kidney Failure < 15 mL/min/1.73m2 *Relative to young adult level Estimated glomerular filtration rate is determined by the 2020 CKD-EPI equation recommended by the National Kidney Foundation (A Unifying Approach to GFR Estimation: Recommendations of the NKF-ASK Task Force on Reassessing the Inclusion of Race in Diagnosing Kidney Disease, JASN 2020). The CKD-EPI equation should not be used for patients with unstable renal function and has not been validated in children and those over 70. Current interpretive data was last reviewed 2020. Blood 10/26/2022 10:2 5 AM CDT 10/26/2022 1:42 PM CDT us Roxann Garcia SECURITY CONTROLS ASSESSOR LAB BLOOD ORDERABLES Final Resu lt ERICA BRUMFIELD (AMARA) 1 [facility] Department [place] [address] * Albumin Creatinine Ratio, Urine (10/26/2022 10:25 AM CDT) Albumin Ur <12.0 mg/L ERICA Reece (AMARA) Comment: Interpretive Data No reference range established. Current interpretive data was last revised 2018. Testing performed by: [address] [address] Creatinine Ur 30.4 mg/dL ERICA BRUMFIELD (AMARA) Comment: Interpretive Data No reference range established. Current interpretive data was last revised 2018. Testing performed by: [address] [address] Albumin Creatinine Ratio, Ur See Comment 1 - 29 ERICA WEISS) Comment: Unable to calculate Testing performed by: [address] [address] Urine 10/26/2022 10:2 5 AM CDT 10/26/2022 7:30 PM CDT us Roxann Garcia NP LAB URINE ORDERABLES Final Resu lt ERICA BRUMFIELD (AMARA) 1 [facility] Department [place] [address] * Lipid panel (10/26/2022 10:25 AM CDT) Cholesterol 176 30 - 199 mg/dL ERICA BRUMFIELD (AMARA) Comment: Interpretive Data Ages < or = 19 years Acceptable: <170 mg/dL Borderline high: 170-199 mg/dL High: >or= 200 mg/dL Ages > or = 20 years Desirable: <200 mg/dL Borderline high: 200-239 mg/dL High: >or= 240 mg/dL Literature References: 1. Expert Panel on Integrated Guidelines for Cardiovascular Health and Risk Reduction in Children and Adolescents. Pediatrics 2011;128:S213 2. NCEP Expert Panel. Circulation 2004;110:227 Current Interpretive Data was last revised on 2017. Triglycerides 79 <=149 mg/dL ERICA BRUMFIELD (AMARA) Comment: Interpretive Data Ages < or = 9 years Acceptable: <75 mg/dL Borderline high: 75-99 mg/dL High: >or= 100 mg/dL Ages 10 to 20 years Acceptable: <90 mg/dL Borderline high: 90-129 mg/dL High: >or= 130 mg/dL Ages > or = 20 years Desirable: <150 mg/dL Borderline high: 150-199 mg/dL High: 200-499 mg/dL Very high: >or= 499 mg/dL Literature References: 1. Expert Panel on Integrated Guidelines for Cardiovascular Health and Risk Reduction in Children and Adolescents. Pediatrics 2011;128:S213 2. NCEP Expert Panel. Circulation 2004;110:227 Current Interpretive Data was last revised on 2017. HDL 49 >=40 mg/dL ERICA GAXIOLA H (AMARA) Comment: Interpretive Data Ages < or = 19 years Acceptable: >45 mg/dL Borderline low: 40-45 mg/dL Low: <40 mg/dL Ages > or = 20 years Desirable: >or= 60 mg/dL Low: <40 mg/dL Literature References: 1. Expert Panel on Integrated Guidelines for Cardiovascular Health and Risk Reduction in Children and Adolescents. Pediatrics 2011;128:S213 2. NCEP Expert Panel. Circulation 2004;110:227 Current Interpretive Data was last revised on 2017. LDL, calculated 111 <=129 mg/dL ERICA BRUMFIELD (AMARA) Comment: Interpretive Data Ages < or = 19 years Acceptable: <110 mg/dL Borderline high: 110-129 mg/dL High: >or= 130 mg/dL Ages > or = 20 years Optimal: <100 mg/dL Near optimal: 100-129 mg/dL Borderline high: 130-159 mg/dL High: >160 mg/dL Literature References: 1. Expert Panel on Integrated Guidelines for Cardiovascular Health and Risk Reduction in Children and Adolescents. Pediatrics 2011;128:S213 2. NCEP Expert Panel. Circulation 2004;110:227 Current Interpretive Data was last revised on 2017. Non-HDL Cholesterol 127 mg/dL ERICA BRUMFIELD (AMARA) Comment: Interpretive Data Ages < or = 19 years Acceptable: <120 mg/dL Borderline high: 120-144 mg/dL High: >145 mg/dL Ages > or = 20 years When triglycerides are >200 mg/dL, Non-HDL cholesterol is a secondary target of therapy with treatment goals that are 30 mg/dL greater than the LDL cholesterol target. Literature References: 1. Expert Panel on Integrated Guidelines for Cardiovascular Health and Risk Reduction in Children and Adolescents. Pediatrics 2011;128:S213 2. NCEP Expert Panel. Circulation 2004;110:227 Current Interpretive Data was last revised on 2017. Chol/HDL ratio 4 EVAN BRUMFIELD (AMARA) Blood 10/26/2022 10:2 5 AM CDT 10/26/2022 1:42 PM CDT Narrative ERICA WEISS) - 10/26/2022 2:09 PM CDT These lab test should be done fasting. This means do not eat or drink for at least 12 hours prior to getting your blood drawn. us Roxann Garcia NP LAB BLOOD ORDERABLES Final Resu lt [facility] AMARA) 1 [facility] [id number] from Last 3 Months or Most Recently Relevant to Health Maintenance Insurance [employer] [facility] CLAIMS [employer] OOS [facility] [place] [address] [address] [employer] OOS Member Subscriber Plan / Payer (Ef fective 2023-Present) Name:Jorge Luis Monzon Relation to Subscriber:Self Name:Jorge Luis Monzon Payer ID:[id number] (NAIC) Type:[facility] Address: [address] [employer] CLAIMS Care Teams Steel Heater Relationship Specialty Start Date End Date Chilo Collado PA [address] [place] [address] PCP - General Physician Bulk Sausage Casing Tier Off 08/03/22
--- OUTSIDE RECORDS SUMMARY | 2024-08-30 21:12 | XMS_ITS | Referral Summary ---
[facility] Organization [facility] Address [address] [place] [address] Care Team Providers Care Lean Engineer Name Role Phone Chilo Collado Primary Care [...] 03/06/2024 Assessment & Plan (03/06/2024 12:17 PM UNIVERSITY TEACHER): This is a chronic condition which is [...] 02/08 Assessment & Plan (03/06/2024 12:18 PM UNIVERSITY TEACHER): He states that his headache started in [...] 03/06/2024 Assessment & Plan (03/06/2024 12:20 PM UNIVERSITY TEACHER): Reports hypoglycemia several times a week He [...] Date TSH 10.75 (H) 10/26/2022 Start on [id number] mcg po daily in am Discussed the [...] his insulin, especially while working in the [employer] Personally reviewed most recent A1c - Lab Results Component Value Date HGBA1C 11.2 06/01/2023 Personally reviewed POC blood sugar- not at goal of 80-180 Lab Results Component Value Date POCGLU 462 06/01/2023 Medication- will proceed with [employer] 780 g insulin pump. Continue glargine 50units [...] eye exam. last dilated eye exam was [facility] Monofilament foot exam completed. protective senses [...] on file Sexual Orientation Not on file Last Filed Vital Signs Vital Sign Reading Time Taken Comments Blood Pressure 150/92 03/06/2024 10:41 AM UNIVERSITY TEACHER Pulse - - Temperature - - Respiratory Rate - - Oxygen Saturation - - Inhaled Oxygen Concentration - - Weight 103.1 kg (227 lb 3.2 oz) 025 10:41 AM UNIVERSITY TEACHER Height 185.4 cm (6' 1) 03/06/2024 10:4 1 AM UNIVERSITY TEACHER Body Mass Index 29.98 03/06/2024 10:41 AM UNIVERSITY TEACHER Plan of Treatment Not on file Procedures Procedure Name Priority Date/Time Associated Diagnosis [...] CDT) eGFR 120 mL/min/1. 73 m2 ERICA BRUMFIELD (AM[place]) Comment: Interpretive Data Reference Interval Normal >/= [...] 5 AM CDT 10/26/2022 1:42 PM CDT Roxann Garcia NP LAB BLOOD ORDERABLES Final Resu lt Performing Organization Address City/[facility]/ZIP Co de Phone Number ERICA BRUMFIELD ([place]) 1 [facility] [place] [address] * Albumin Creatinine Ratio, Urine (10/26/2022 10:25 AM CDT) Albumin Ur <12.0 mg/L [facility] H (AMARA) Comment: Interpretive Data No reference range established. Current interpretive data was last revised 2018. Testing performed by: [facility], [address] [place] [address]., [address] Creatinine Ur 30.4 mg/dL ERICA BRUMFIELD ([place]) Comment: Interpretive Data No reference range established. Current interpretive data was last revised 2018. Testing performed by: [address], [address] Albumin Creatinine Ratio, Ur See Comment 1 - 29 ERICA BRUMFIELD ([place]) Comment: Unable to calculate Testing performed by: [address], [address] Urine 10/26/2022 10:2 5 AM CDT 10/26/2022 7:30 PM CDT Roxann Garcia NP LAB URINE ORDERABLES Final Resu lt Performing Organization Address [facility]/[place] Co de Phone Number ERICA BRUMFIELD ([place]) 1 [facility] [address] [place] [address] * Lipid panel (10/26/2022 10:25 AM CDT) Cholesterol 176 30 - 199 mg/dL ERICA [facility] ([place]) Comment: Interpretive Data Ages < or [...] on 2017. HDL 49 >=40 mg/dL ERICA Reece ([place]) Comment: Interpretive Data Ages < or [...] CDT 10/26/2022 1:42 PM CDT Narrative ERICA BRUMFIELD ([place]) - 10/26/2022 2:09 PM CDT These lab test should be done fasting. This means do not eat or drink for at least 12 hours prior to getting your blood drawn. Roxann Garcia NP LAB BLOOD ORDERABLES Final Resu lt ERICA BRISSA ([place]) 1 [facility] [place] [address] from Last 3 Months or Most Recently Relevant to Health Maintenance Insurance [employer]) Address: [facility] [address] [place] [address] [facility] CLAIMS [employer](IN[employer]) Address: [facility] [id number] [place] [phone] [employer] OOS CLAIMS [employer](IN[employer]) Address: [address] [address] [employer] OOS [facility] CLAIMS Care Teams Lean Engineer Relationship Specialty Start Date End Date Chilo Collado PA [address] [place] [id number] PCP - General Physician Director Clinical Data 08/03/22
--- NOTE | 2024-08-30 21:15 | ED_ITS ---
HPI - Recheck/Abnormal Lab/Rx General Chief Complaint: Unspecified Stated Complaint: dka vs heat exhaustion Time Seen by Provider: 08/30/24 21:14 Source: patient Mode of arrival: ambulatory Limitations: no limitations History of Present Illness HPI narrative: patient is a 38-year-old male that does not feel this evening and possibly has dehydration verses DKA. Patient has diabetes 1. His insulin pump has been off for the last day due to malfunction and he is going to have a back on tomorrow. He has some variable aches and pains at this time. MD complaint: abnormal lab ( Hyperglycemia in the 400s) Initial visit for: other ( hyperglycemia) Returns today for: called because of abnormal lab/test ( hyperglycemia and concerns for DKA) Symptoms since prior visit: no new symptoms Context: other ( patient having hyperglycemia and not feeling well over the past day with correlation not having his insulin pump) Associated symptoms: malaise and nausea Treatments prior to arrival: other medications ( patient has been using short- acting NovoLog to repair his hyperglycemia) Related Data Home Medications ?Medication ?Instructions ?Recorded ?Confirmed ?Last Taken ?Type insulin aspart U-100 100 unit/mL 10 unit subcut TIDWMEAL 05/20/23 05/26/23 Unknown History subcutaneous solution (Novolog U-100 Insulin aspart) insulin glargine 100 unit/mL 30 unit subcut DAILY 05/20/23 05/26/23 Unknown History subcutaneous solution (Lantus U-100 Insulin) methocarbamol 500 mg tablet 500 mg PO DAILY 07/24/23 07/24/23 Unknown History Allergies Allergy/AdvReac Type Severity Reaction Status Date / Time No Known Allergies Allergy Verified 08/30/24 21:42 Review of Systems 2 Review of Systems: All systems reviewed & are unremarkable except as noted in HPI and below Constitutional: Constitutional: Reports no additional constitutional complaints Eyes: Eyes: Reports no additional eye complaints ENT: Reports system reviewed and no additional complaints, except as documented Cardiovascular: Cardiovascular: Reports no additional cardiovascular complaints Respiratory: Respiratory: Reports no additional respiratory complaints Gastrointestinal: Gastrointestinal: Reports no additional gastrointestinal complaints Genitourinary: Genitourinary: Reports no additional male genitourinary complaints Musculoskeletal: Musculoskeletal: Reports no additional musculoskeletal complaints Integumentary/Breasts: Skin/Breast: Reports system reviewed and no additional complaints, except as docu Neurologic: Reports system reviewed and no additional complaints, except as documented Psychiatric: Psychiatric: Reports no additional psychiatric complaints Endocrine: Endocrine: Reports no additional endocrine complaints Hematologic/Lymphatic: Hematologic/Lymphatic: Reports no additional hematologic/lymphatic complaints Allergic/Immunologic: Allergic/Immunologic: Reports no additional allergic/immunologic complaints PMF Past Medical History Medical History Chronic pancreatitis Diabetes mellitus Type 1 Surgical History Surgical History History of appendectomy History of lumbar spinal fusion L5-S1 Social History Social History Smoking status: Never smoker Alcohol intake: unknown Substance use: never Substance use type: does not use Do You Feel Safe in your Home?: Yes Lack of Transportation: No Lack of Food: Never True Current Housing: Decline to Answer Concerned About Future Housing: Decline to Answer Difficulty Paying Gas/Electric Bills: Decline to Answer Difficulty Paying for Meds: Decline to Answer Currently Unemployed: Decline to Answer Education: Decline to Answer Difficulty w/ Childcare or Family Care: Decline to Answer Spiritual care concerns: No Exam 2 Const: General: healthy appearing Nutritional Appearance: well nourished Orientation/consciousness: patient oriented x3 HENMT: Head: normal to inspection Ears: external ears normal F david/Nose/Sinus: Normal external nose present Eyes: Conjunctivae: conjunctivae normal Pupils: Equal, round and reactive pupils present EOM: EOMs intact bilaterally Neck: Neck: normal visual inspection Chest: Chest palpation & inspection: normal inspection of the chest Resp: Effort & Inspection: normal respiratory effort and not labored A uscultation: clear to auscultation bilaterally and no crackles Cardio: Rate: regular rate Rhythm: regular rhythm Heart sounds: no murmurs GI: Inspection: non-distended GI Palp: Yes Soft to palpation and No Tenderness to palpation present (GI) Auscultation: normal bowel sounds : General: Yes bladder normal to palpation Back/Spine/Pelvis: Back: no CVA tenderness Skin: General skin exam: normal color Rashes: no rashes Wounds: no wounds Neuro: General: patient oriented x3, moves all extremities, no meningeal signs, no focal motor deficits and CN's II-XI intact bilaterally Cranial nerves: Yes Nystagmus not present Speech: normal speech Gait exam (Neuro): Normal gait present Other: Fast exam negative, NIH score 0, GCS is 15 Extrem: General: normal to inspection Psych: Mental Status: mental status grossly normal Affect: normal affect Attitude: cooperative Course Vital Signs Vital signs: Vital Signs Temperature 36.3 C L 08/30/24 21:08 Pulse Rate 96 08/30/24 21:08 Respiratory Rate 18 08/30/24 21:08 Blood Pressure 156/99 H 08/30/24 21:08 Pulse Oximetry 94 08/30/24 21:08 Oxygen Delivery Room Air 08/30/24 21:08 Temperature 36.3 C L 08/30/24 21:08 Pulse Rate 67 08/31/24 00:37 Respiratory Rate 18 08/31/24 00:37 Blood Pressure 163/96 H 08/31/24 00:37 Pulse Oximetry 99 08/31/24 00:37 Oxygen Delivery Room Air 08/31/24 00:37 MDM - Recheck/Abnormal Lab/Rx MDM Narrative Medical decision making narrative: patient is a 38-year-old male with aches and pains as well as his insulin pump is not working at the time ( will be ready in the morning for use) and hyperglycemia with possible DKA. We will do diabetic workup at this time. Lab Data Attestation: I reviewed the patient's lab results. 08/30/24 21:15 08/30/24 21:15 Labs: Lab Results 08/30/24 08/30/24 08/30/24 Range/Units 21:15 22:04 23:17 WBC 8.9 (4.8-10.8) K/mm3 RBC 4.94 (4.70-6.10) M/mm3 Hgb 14.3 (14.0-18.0) g/dL Hct 41.5 (40.0-54.0) % MCV 84.0 (78.0-102.0) fL MCH 28.9 (27.0-31.0) pg MCHC 34.5 (32-36) g/dL RDW 12.4 (11.6-14.4) % Plt Count 349 (150-420) K/mm3 MPV 10.2 (8.7-11.0) fl Immature Gran % (Auto) 0.3 H (0.0-0.0) % Neut % (Auto) 72.6 H (50.0-70.0) % Lymph % (Auto) 19.1 (18.0-42.0) % Knox % (Auto) 7.2 (2.0-11.0) % Eos % (Auto) 0.3 L (1.0-6.0) % Baso % (Auto) 0.5 (0.0-1.0) % Lymph # (Auto) 1.69 (1.10-4.50) K/mm3 Knox # (Auto) 0.64 (0.10-0.90) K/mm3 Eos # (Auto) 0.03 (0.02-0.50) K/mm3 Baso # (Auto) 0.04 (0.00-0.10) K/mm3 Abs Immat Gran (auto) 0.03 H (0.00-0.00) K/mm3 Absolute Neuts (auto) 6.42 (1.70-7.20) K/mm3 Absolute Nucleated RBC 0.00 (0.00-0.00) K/mm3 Nucleated RBC % 0.0 (0-0.0) % Sodium 134 L (137-145) mmol/L Potassium 4.1 (3.4-5.0) mmol/L Chloride 99 (98-107) mmol/L Carbon Dioxide 25 (22-30) mmol/L Anion Gap 10 (4-12) mmol/L BUN 20 (9-20) mg/dL Creatinine 1.38 H (0.7-1.3) mg/dL Estim Creat Clear Calc 76 ml/min Estimated GFR 58 L (59 - ) Glucose 425 H (65-110) mg/dL POC Capillary Glucose 385 H 267 H 262 H (65-105) mg/dl Calculated Osmolality 298 H (285-295) mOsm/kg Lactic Acid 1.4 (0.4-2.0) mmol/L Calcium 8.9 (8.4-10.2) mg/dL Total Bilirubin 1.5 H (0.2-1.3) mg/dL AST 29 (17-59) U/L ALT 36 (6-50) U/L Alkaline Phosphatase 66 (38-126) U/L Troponin I < 0.012 (0.000-0.034) ng/mL Total Protein 7.1 (6.3-8.2) g/dL Albumin 4.3 (3.5-5.1) g/dL Urine Color (Yellow) Urine Appearance (Clear) Urine pH (5.0-8.0) Ur Specific [place] (1.010-1.020) Urine Protein (Negative) Urine Glucose (UA) (Negative) Urine Ketones (Negative) Ur Blood (Man) (Negative) Urine Nitrate (Negative) Urine Bilirubin (Negative) Urine Urobilinogen (0.2-1.0) mg/dL Leukocyte Esterase Rfl (Negative) LIYA/UL Acetone Level Negative (Negative) 08/31/24 Range/Units 00:09 WBC (4.8-10.8) K/mm3 RBC (4.70-6.10) M/mm3 Hgb (14.0-18.0) g/dL Hct (40.0-54.0) % MCV (78.0-102.0) fL MCH (27.0-31.0) pg MCHC (32-36) g/dL RDW (11.6-14.4) % Plt Count (150-420) K/mm3 MPV (8.7-11.0) fl Immature Gran % (Auto) (0.0-0.0) % Neut % (Auto) (50.0-70.0) % Lymph % (Auto) (18.0-42.0) % Knox % (Auto) (2.0-11.0) % Eos % (Auto) (1.0-6.0) % Baso % (Auto) (0.0-1.0) % Lymph # (Auto) (1.10-4.50) K/mm3 [place] # (Auto) (0.10-0.90) K/mm3 Eos # (Auto) (0.02-0.50) K/mm3 Baso # (Auto) (0.00-0.10) K/mm3 Abs Immat Gran (auto) (0.00-0.00) K/mm3 Absolute Neuts (auto) (1.70-7.20) K/mm3 Absolute Nucleated RBC (0.00-0.00) K/mm3 Nucleated RBC % (0-0.0) % Sodium (137-145) mmol/L Potassium (3.4-5.0) mmol/L Chloride (98-107) mmol/L Carbon Dioxide (22-30) mmol/L Anion Gap (4-12) mmol/L BUN (9-20) mg/dL Creatinine (0.7-1.3) mg/dL Estim Creat Clear Calc ml/min Estimated GFR (59 - ) Glucose (65-110) mg/dL POC Capillary Glucose (65-105) mg/dl Calculated Osmolality (285-295) mOsm/kg Lactic Acid (0.4-2.0) mmol/L Calcium (8.4-10.2) mg/dL Total Bilirubin (0.2-1.3) mg/dL AST (17-59) U/L ALT (6-50) U/L Alkaline Phosphatase (38-126) U/L Troponin I (0.000-0.034) ng/mL Total Protein (6.3-8.2) g/dL Albumin (3.5-5.1) g/dL Urine Color Light yellow (Yellow) Urine Appearance Clear (Clear) Urine pH 6.0 (5.0-8.0) Ur Specific [place] <= 1.005 L (1.010-1.020) Urine Protein Negative (Negative) Urine Glucose (UA) 3+ H (Negative) Urine Ketones Negative (Negative) Ur Blood (Man) Trace-intact H (Negative) Urine Nitrate Negative (Negative) Urine Bilirubin Negative (Negative) Urine Urobilinogen 0.2 (0.2-1.0) mg/dL Leukocyte Esterase Rfl Negative (Negative) LIYA/UL Acetone Level (Negative) ABG Data ABG results: 08/30/24 21:43 Puncture Site Left radial ABG pH 7.40 ABG pCO2 33.3 L ABG pO2 80.6 ABG HCO3 20.2 L ABG O2 Saturation 96.1 ABG Base Excess -3.7 L Oxyhemoglobin 94.9 O2 Delivery Device Room air O2 Liters/Min 0.0 Imaging Data Attestation: I personally reviewed and interpreted this imaging study as follows: Radiologist's impression: chest x-ray is negative for acute process ECG Data EKG #1: Attestation: I personally reviewed and interpreted this ECG as follows: ECG completion date: 08/30/24 ECG completion time: 22:17 EKG Interpretation: normal rate, sinus rhythm, no ectopy, no ST changes, normal QT and NL axis Discharge Plan Discharge Clinical Impression: Acute dehydration, Acute hyperglycemia, ORTIZ (acute kidney injury) Patient Disposition: Home Condition: Improved Instructions: Dehydration (DC), Diabetic Hyperglycemia (ED) Patient Language: Armenian Prescriptions: No Action methocarbamol 500 mg tablet 500 mg PO DAILY hydrocodone-acetaminophen 5-325 mg tablet 1 tablet PO Q8H PRN (Reason: pain) Qty: 10 0RF insulin glargine [Lantus U-100 Insulin] 100 unit/mL Solution 30 unit SUBCUT DAILY insulin aspart U-100 [Novolog U-100 Insulin aspart] 100 unit/mL Solution 10 unit subcut TIDWMEAL Follow-up/Referrals: Heaven,YAYO Woo [Primary Care Provider] - Time of Disposition: 23:05
--- NOTE | 2024-08-30 21:16 | ECG_ITS ---
Test Date: 2024-08-30 21:37:04 Measurements Intervals [place] Rate: 86 P: 0 [place]: 0 QRS: 58 QRSD: 83 T: 31 QT: 358 QTc: 430 Interpretive Statements SINUS RHYTHM artifact limits interpretation No previous ECG available for comparison Electronically Signed On 09-01-2024 18:23:50 CDT by Magan Snow M.D.
[2024-08-30] MEDS: INSULIN HUMAN REGULAR (*BKC) 1,000 UNITS/10 ML VIAL 8 UNITS IV PUSH (21:24)
[2024-08-30] MEDS: SODIUM CHLORIDE 0.9% IV 1,000 ML 999 ML IV CONT ×3 (21:24→23:22)
[2024-08-30 21:25] LABS: Hematocrit 41.5 % (40.0-54.0); Hemoglobin 14.3 g/dL (14.0-18.0); Immature Granulocyte Percent A 0.3 % (0.0-0.0); Lymphocytes Absolute Auto 1.69 K/mm3 (1.10-4.50); Mean Corpuscular HGB Conc 34.5 g/dL (32-36); Mean Corpuscular Hemoglobin 28.9 pg (27.0-31.0); Mean Corpuscular Volume 84.0 fL (78.0-102.0); Nucleated Red Blood Cells Absolute Auto 0.00 K/mm3 (0.00-0.00); Nucleated Red Blood Cells Perc 0.0 % (0-0.0); Platelet Count Result 349 K/mm3 (150-420); Red Blood Count 4.94 M/mm3 (4.70-6.10); White Blood Count 8.9 K/mm3 (4.8-10.8)
[2024-08-30 21:33] LABS: Alanine Aminotransferase 36 U/L (6-50); Albumin Level 4.3 g/dL (3.5-5.1); Alkaline Phosphatase 66 U/L (38-126); Anion Gap 10 mmol/L (4-12); Aspartate Amino Transferase 29 U/L (17-59); Bilirubin,Total 1.5 mg/dL (0.2-1.3); Blood Urea Nitrogen 20 mg/dL (9-20); Calcium 8.9 mg/dL (8.4-10.2); Carbon Dioxide 25 mmol/L (22-30); Chloride 99 mmol/L (98-107); Estimated CRCL calculation 76 ml/min; Estimated Glomerular Filt Rate 58; Glucose 425 mg/dL (65-110); Osmolality Calculated 298 mOsm/kg (285-295); Potassium 4.1 mmol/L (3.4-5.0); Sodium 134 mmol/L (137-145); Total Protein 7.1 g/dL (6.3-8.2)
--- NOTE | 2024-08-30 21:37 | ECG_ITS ---
Test Date: 2024-08-30 22:00:41 Measurements Intervals [place] Rate: 91 P: 51 CT: 140 QRS: 78 QRSD: 94 T: 42 QT: 354 QTc: 438 Interpretive Statements SINUS RHYTHM Compared to ECG 08/30/2024 21:37:04 No significant changes Electronically Signed On 09-01-2024 18:24:36 CDT by Magan Snow M.D.
[2024-08-30 21:44] LABS: Troponin I < 0.012 ng/mL (0.000-0.034)
[2024-08-30 21:47] LABS: HCO3 ABG 20.2 mmol/L (23-29); Oxygen Saturation ABG 96.1 % (95-97); PCO2 ABG 33.3 mmHg (35-45); PO2 ABG 80.6 mmHg (80-90)
[2024-08-30 21:48] LABS: Liters per Minute 0.0 LPM; Modified Allen's Test Pass; Site Drawn LEFT RADIAL
--- OUTSIDE RECORDS SUMMARY | 2024-08-30 22:15 | XMS_ITS | Clinical Summary ---
Author Organization [facility] Address [address] [place] [address] Care Team Providers Care Industrial Hygiene Technician Name Role Phone Chilo Collado Primary Care Provider [phone] Social History Tobacco Use Types Packs/Day Years Used Date Smoking Tobacco: Never Assessed Sex and Gender Information Value Date Recorded Sex Assigned at Male 02/28/2024 12:59 PM CONFECTIONERY COOKER Legal Sex Male 1:30 PM CDT Gender [...] patient's age to complete this topic Insurance [facility] Care Teams Industrial Hygiene Technician Relationship Specialty Start Date End Date Chilo Collado PA [address] [place] [phone] PCP - General PHYSICIAN MIRROR SPECIALIST 02/28/24
--- OUTSIDE RECORDS SUMMARY | 2024-08-30 22:15 | XMS_ITS | Referral Summary ---
[facility] Address [address] [place] [address] Care Team Providers Care Rail Grinder Name Role Phone Chilo Collado Primary Care [...] 03/06/2024 Assessment & Plan (03/06/2024 12:17 PM BACK END ENGINEER): This is a chronic condition which is [...] 02/08 Assessment & Plan (03/06/2024 12:18 PM BACK END ENGINEER): He states that his headache started in [...] 03/06/2024 Assessment & Plan (03/06/2024 12:20 PM BACK END ENGINEER): Reports hypoglycemia several times a week He [...] Date TSH 10.75 (H) 10/26/2022 Start on [id number] mcg po daily in am Discussed the [...] his insulin, especially while working in the [employer] Personally reviewed most recent A1c - Lab Results Component Value Date HGBA1C 11.2 06/01/2023 Personally reviewed POC blood sugar- not at goal of 80-180 Lab Results Component Value Date POCGLU 462 06/01/2023 Medication- will proceed with [place] 780 g insulin pump. Continue glargine 50units [...] eye exam. last dilated eye exam was [facility] Monofilament foot exam completed. protective senses intact [...] Comments Blood Pressure 150/92 03/06/2024 10:41 AM BACK END ENGINEER Pulse - - Temperature - - Respiratory Rate - - Oxygen Saturation - - Inhaled Oxygen Concentration - - Weight 103.1 kg (227 lb 3.2 oz) 025 10:41 AM BACK END ENGINEER Height 185.4 cm (6' 1) 03/06/2024 10:4 1 AM BACK END ENGINEER Body Mass Index 29.98 03/06/2024 10:41 AM BACK END ENGINEER Plan of Treatment Not on file Procedures [...] ORDERABLES Final Resu lt Performing Organization Address City/[facility]/ZIP Co de Phone Number ERICA BRUMFIELD ([place]) 1 [facility] [place] [address] * Albumin Creatinine Ratio, Urine (10/26/2022 10:25 AM CDT) Albumin Ur <12.0 mg/L [facility] AM H (AMARA) Comment: Interpretive Data No reference range established. Current interpretive data was last revised 2018. Testing performed by: [facility], [address] [place] [address]., [address] Creatinine Ur 30.4 mg/dL ERICA BRUMFIELD (AMARA) Comment: Interpretive Data No reference range established. Current interpretive data was last revised 2018. Testing performed by: [address], [address] Albumin Creatinine Ratio, Ur See Comment 1 - 29 ERICA BRUMFIELD (AMARA) Comment: Unable to calculate Testing performed by: [address], [address] Urine 10/26/2022 10:2 5 AM CDT 10/26/2022 7:30 PM CDT Roxann Garcia NP LAB URINE ORDERABLES Final Resu lt Performing Organization Address [facility] Co de Phone Number ERICA BRUMFIELD ([place]) 1 [facility] [place] [address] * Lipid panel (10/26/2022 10:25 AM CDT) [...] Final Resu lt ERICA BRISSA (AM[place]) 1 [facility] Department [place] [address] from Last 3 Months or Most Recently Relevant to Health Maintenance Insurance [employer] OOS CLAIMS [employer]S Care Teams Rail Grinder Relationship Specialty Start Date End Date Chilo Collado PA [address] [place] [id number] PCP - General Physician Dry Cell Assembly Supervisor 08/03/22
--- OUTSIDE RECORDS SUMMARY | 2024-08-30 22:15 | XMS_ITS ---
Author Organization Unknown Address [address] [place], [place] [id number] Phone Care Team Providers Care Vault Manager Name Role Phone nicoletteAdolfo DEANNA Attending Unavailable Social History Type Status Start Date End Date Code Code Syst em Smoking History Unknown if ever smoked [id number] Sex Male Hospital Discharge Instructions [...] tem History and physical examination, pre-employment 12/08 [id number] SNOMED-[place] Personal Care Team Section
--- OUTSIDE RECORDS SUMMARY | 2024-08-30 22:15 | XMS_ITS ---
Author Organization Unknown Address [address] [place], [place] [phone] Phone Care Team Providers Care Roof Bolter Name Role Phone nicoletteAdolfo DEANNA Attending Unavailable Social History Type Status Start Date End Date Code Code Syst em Smoking History Unknown if ever smoked [id number] Sex Male Hospital Discharge Instructions [...] tem History and physical examination, pre-employment 06/21 [id number] SNOMED-CT Personal Care Team Section
--- OUTSIDE RECORDS SUMMARY | 2024-08-30 22:15 | XMS_ITS | Clinical Summary ---
Author Organization [facility] Building [address] Address [address] [place] [address] Care Team Providers Care Candy Forming Machine Operator Name Role Phone Chilo Collado Primary Care [...] 03/06/2024 Assessment & Plan (03/06/2024 12:17 PM MOTEL FRONT DESK CLERK): This is a chronic condition which is [...] 02/08 Assessment & Plan (03/06/2024 12:18 PM MOTEL FRONT DESK CLERK): He states that his headache started in [...] 03/06/2024 Assessment & Plan (03/06/2024 12:20 PM MOTEL FRONT DESK CLERK): Reports hypoglycemia several times a week He [...] Date TSH 10.75 (H) 10/26/2022 Start on [id number] mcg po daily in am Discussed the [...] his insulin, especially while working in the [employer] Personally reviewed most recent A1c - Lab Results Component Value Date HGBA1C 11.2 06/01/2023 Personally reviewed POC blood sugar- not at goal of 80-180 Lab Results Component Value Date POCGLU 462 06/01/2023 Medication- will proceed with [employer] 780 g insulin pump. Continue glargine 50units [...] eye exam. last dilated eye exam was [facility] Monofilament foot exam completed. protective senses intact [...] Comments Blood Pressure 150/92 03/06/2024 10:41 AM MOTEL FRONT DESK CLERK Pulse - - Temperature - - Respiratory Rate - - Oxygen Saturation - - Inhaled Oxygen Concentration - - Weight 103.1 kg (227 lb 3.2 oz) 025 10:41 AM MOTEL FRONT DESK CLERK Height 185.4 cm (6' 1) 03/06/2024 10:4 1 AM MOTEL FRONT DESK CLERK Body Mass Index 29.98 03/06/2024 10:41 AM MOTEL FRONT DESK CLERK Plan of Treatment Health Maintenance Due Date [...] 10/26/2022 1:42 PM CDT us Roxann Garcia ASSOCIATE ACCOUNT DIRECTOR LAB BLOOD ORDERABLES Final Resu lt ERICA BRUMFIELD (AMARA) 1 [facility] [place] [address] * Albumin Creatinine Ratio, Urine (10/26/2022 10:25 AM CDT) Albumin Ur <12.0 mg/L ERICA Reece (AMARA) Comment: Interpretive Data No reference range established. Current interpretive data was last revised 2018. Testing performed by: [address] [id number] Creatinine Ur 30.4 mg/dL ERICA BRUMFIELD (AMARA) Comment: Interpretive Data No reference range established. Current interpretive data was last revised 2018. Testing performed by: [address] [id number] Albumin Creatinine Ratio, Ur See Comment 1 - 29 ERICA WEISS) Comment: Unable to calculate Testing performed by: [address] [id number] Urine 10/26/2022 10:2 5 AM CDT 10/26/2022 7:30 PM CDT us Roxann Garcia NP LAB URINE ORDERABLES Final Resu lt ERICA BRUMFIELD (AMARA) 1 [facility] Department [place] [address] * Lipid panel (10/26/2022 10:25 AM CDT) [...] Final Resu lt CERNER [facility] AMARA) 1 [facility] [place] [id number] from Last 3 Months or Most Recently Relevant to Health Maintenance Insurance [employer] [facility] [employer] [facility] Address: [address] [place] [address] [facility] [place] [address] [employer] [facility] Address: [address] [place] CLAIMS Care Teams Candy Forming Machine Operator Relationship Specialty Start Date End Date Chilo Collado PA [address] [place] [address] PCP - General Physician Metal Sheet Roller Operator 08/03/22
--- NOTE | 2024-08-30 22:35 | PC.NURSE ---
PATIENT RESTING ON STRETCHER. SECOND LITER OF NS INFUSING TO RIGHT AC. SITE WITHOUT REDNESS OR SWELLING.
--- NOTE | 2024-08-30 23:19 | PC.NURSE ---
PATIENT REPORTS THAT HE IS NOT FEELING BETTER. REQUESTING A THIRD LITER OF FLUIDS. DR HODGES NOTIFIED. NEW BLOOD GLUCOSE TAKEN
--- NOTE | 2024-08-30 23:20 | PC.NURSE ---
PATIENT HAS NOT URINATED AT THIS TIME. STATES HE HAS NOT URINATED ALL DAY. DR HODGES NOTIFIED
--- NOTE | 2024-08-30 23:38 | PC.NURSE ---
PATIENT RESTING ON STRETCHER. MORE WATER GIVEN TO DRINK. ALERT AND ORIENTED X 3
--- NOTE | 2024-08-31 00:10 | PC.NURSE ---
PATIENT AMBULATED TO THE BATHROOM AND BACK TO ROOM WITH STEADY GAIT.
[2024-08-31 00:15] LABS: Add Urine Microscopic? NO; Appearance Urine Clear (Clear); Glucose Urine UA 3+ (Negative); Leukocyte Esterase Ur Negative LEU/UL (Negative); Nitrate Urine Negative (Negative); Specific Grav Ur <= 1.005 (1.010-1.020)
[2024-08-31 00:37] VITALS: BP 163/96; PULSE 67; RESP 18; O2SAT 99
== END 2024-08-31 00:41 | disposition home or self-care (01) ==
PROVIDERS: Emergency Provider Emergency Medicine; PCP Physician Assistant
DX: E86.0 Dehydration (principal); N17.9 Acute kidney failure, unspecified; E10.65 Type 1 diabetes mellitus with hyperglycemia; Z79.4 Long term (current) use of insulin; Z96.41 Presence of insulin pump (external) (internal)
CPT/HCPCS: 36415; 36600; 71046; 80053; 81003; 82010; 82805; 82948; 83605; 84484; 85025; 93005; 96361; 96374; 99284; J1815; J7030